=== PATIENT | male | born 1970 | race Asian ===

== ENCOUNTER 2017-12-25 14:33 | Inpatient (IN) | payer MEDICAID, OTHER, SELFPAY ==
[~2017-12-25] VITALS: Ht 177.8 cm; Wt 52.9 kg
[2017-12-25] MEDS ORDERED: VERAPAMIL 2.5 MG/ML, 2ML ONE (15:19)
[2017-12-25] MEDS ORDERED: VERAPAMIL 2.5 MG/ML, 2ML IVPush ONE (15:30)
[2017-12-25 15:38] LABS: ALANINE AMINOTRANSFERASE 147 U/L (12-78); ALBUMIN 3.3 g/dL (3.4-5.0); ANION GAP 16 mmol/L (5-15); CALCIUM 9.1 mg/dL (8.5-10.1); CHLORIDE 90 mmol/L (98-107); CREATININE 1.13 mg/dL (0.7-1.3); INTERNATIONAL NORMALIZED RATIO 1.24 (0.93-1.1); PROTHROMBIN TIME 12.8 Seconds (9.6-11.5)
[2017-12-25 15:42] LABS: ALKALINE PHOSPHATASE 245 U/L (45-117); BILIRUBIN,TOTAL 3.9 mg/dL (0.2-1.0); TOTAL PROTEIN 7.6 g/dL (6.4-8.2); TROPONIN I 0.046 ng/mL (0.000-0.045)
[2017-12-25] MEDS ORDERED: NS + 40MEQ KCL 1,000 ML IV ONE (15:55)
[2017-12-25 15:56] LABS: MICROSCOPIC INDICATED
[2017-12-25] MEDS ORDERED: POTASSIUM CHLORIDE 40 MEQ in SODIUM CHLORIDE 0.9% 500 ML IV ONE (16:00)
[2017-12-25] MEDS ORDERED: NS + 40MEQ KCL 1,000 ML IV SCH (16:00)
[2017-12-25 16:02] LABS: MEAN CORPUSCULAR HEMOGLOBIN 27.7 pg (27.5-34.5); MEAN CORPUSCULAR HGB CONC 33.7 g/dL (33.2-36.2); MEAN CORPUSCULAR VOLUME 82.2 fL (81-97); MEAN PLATELET VOLUME 12.2 fL (7.4-10.4); RED BLOOD COUNT 4.36 x10^6/uL (4.38-5.82); RED CELL DISTRIBUTION WIDTH 15.1 % (9.4-14.8)
[2017-12-25 16:03] LABS: HEMOGRAM NOTE RECHECKED
[2017-12-25 16:04] LABS: PLATELET COUNT 44 x10^3/uL (130-400)
[2017-12-25 16:05] LABS: BASOPHILS # (AUTO) 0.05 x10^3/uL (0-0.1); BASOPHILS % (AUTO) 1 % (0-1); EOSINOPHILS # (AUTO) 0.03 x10^3/uL (0-0.4); EOSINOPHILS % (AUTO) 0 % (1-7); LYMPHOCYTES # (AUTO) 3.48 x10^3/uL (1-3.4); LYMPHOCYTES % (AUTO) 31 % (22-44); MD MORPH REVIEW ONLY; MONOCYTES # (AUTO) 0.64 x10^3/uL (0.2-0.8); MONOCYTES % (AUTO) 6 % (2-9); NEUTROPHILS # (AUTO) 7.14 x10^3/uL (1.8-6.8); NEUTROPHILS % (AUTO) 63 % (42-75)
[2017-12-25 16:08] LABS: ANISOCYTOSIS 1+
[2017-12-25 16:10] LABS: <PLATELET ESTIMATE> DECREASED; LARGE PLATELETS 1+; TARGET CELLS 1+
[2017-12-25 16:10] LABS: CULTURE INDICATED? NO
[2017-12-25] MEDS ORDERED: HYDROmorphone 1 MG/ML, 1ML IV ONE (16:30)
[2017-12-25] MEDS ORDERED: POTASSIUM CHLORIDE 20 MEQ TAB.ER.PRT PO ONE (17:00)
[2017-12-25] MEDS ORDERED: POTASSIUM CHLORIDE 20 MEQ in LACTATED RINGERS 1,000 ML IV SCH (18:04)
[2017-12-25] MEDS ORDERED: LABETALOL 5MG/ML, 20ML IVPush PRN (18:30)
[2017-12-25] MEDS ORDERED: NICOTINE 14MG/24 HR PATCH.TD24 TD SCH (18:30)
[2017-12-25] MEDS ORDERED: METOPROLOL 1 MG/ML, 5ML IVPush PRN (18:30)
[2017-12-25] MEDS: METOPROLOL TARTRATE 50 MG TABLET PO SCH ×2 (18:37→21:44)
[2017-12-25 18:41] LABS: FREE T4 (FREE THYROXINE) 1.09 ng/dL (0.76-1.46); TROPONIN I 0.052 ng/mL (0.000-0.045)
[2017-12-25 18:43] VITALS: BP 133/83
[2017-12-25 18:51] LABS: HEMOGLOBIN A1C 8.7 % (4.2-6.3)
[2017-12-25] MEDS ORDERED: MAGNESIUM SULFATE PMX 4GM/100M 100 ML IV ONE (19:00)
[2017-12-25] MEDS ORDERED: LORazepam 2 MG/ML, 1ML IVPush PRN (19:30)
[2017-12-25] MEDS ORDERED: THIAMINE 100 MG, MVI ADULT 10 ML, FOLIC ACID 1 MG in D5%-0.9% NACL 1,000 ML IV SCH (20:00)
[2017-12-25 21:13] VITALS: BP 133/83
[2017-12-25 23:47] LABS: CLOSTRIDIUM DIFFICILE ANTIGEN NEGATIVE; CLOSTRIDIUM DIFFICILE TOXIN NEGATIVE (Negative)
[2017-12-26 00:36] VITALS: BP 113/75
[2017-12-26 01:10] LABS: TROPONIN I 0.034 ng/mL (0.000-0.045)
[2017-12-26 04:42] VITALS: BP 133/83
[2017-12-26 05:37] LABS: ALBUMIN 2.4 g/dL (3.4-5.0); ANION GAP 6 mmol/L (5-15); CALCIUM 7.1 mg/dL (8.5-10.1); CHLORIDE 102 mmol/L (98-107)
[2017-12-26] MEDS ORDERED: ASPI-650 PO (05:39)
[2017-12-26] MEDS ORDERED: MULT-508 PO (05:40)
[2017-12-26 05:46] LABS: MEAN CORPUSCULAR HEMOGLOBIN 28.4 pg (27.5-34.5); MEAN CORPUSCULAR HGB CONC 34.2 g/dL (33.2-36.2); MEAN CORPUSCULAR VOLUME 82.8 fL (81-97); RED BLOOD COUNT 3.48 x10^6/uL (4.38-5.82); RED CELL DISTRIBUTION WIDTH 14.2 % (9.4-14.8)
[2017-12-26 05:49] LABS: ALANINE AMINOTRANSFERASE 117 U/L (12-78); ALKALINE PHOSPHATASE 211 U/L (45-117); BILIRUBIN,TOTAL 3.1 mg/dL (0.2-1.0); CREATININE 0.73 mg/dL (0.7-1.3)
[2017-12-26 05:50] LABS: THYROID STIMULATING HORMONE 0.869 mIU/L (0.358-3.740)
[2017-12-26 06:16] LABS: BASOPHILS # (AUTO) 0.03 x10^3/uL (0-0.1); BASOPHILS % (AUTO) 0 % (0-1); EOSINOPHILS # (AUTO) 0.06 x10^3/uL (0-0.4); EOSINOPHILS % (AUTO) 1 % (1-7); LYMPHOCYTES # (AUTO) 2.83 x10^3/uL (1-3.4); LYMPHOCYTES % (AUTO) 38 % (22-44); MD SCAN; MEAN PLATELET VOLUME 10.9 fL (7.4-10.4); MONOCYTES # (AUTO) 0.44 x10^3/uL (0.2-0.8); MONOCYTES % (AUTO) 6 % (2-9); NEUTROPHILS # (AUTO) 4.04 x10^3/uL (1.8-6.8); NEUTROPHILS % (AUTO) 55 % (42-75)
[2017-12-26 06:21] LABS: PLATELET COUNT 32 x10^3/uL (130-400)
[2017-12-26 07:37] VITALS: BP 130/90
[2017-12-26] MEDS ORDERED: FOLIC ACID 5 MG/ML IM ONE (09:00)
[2017-12-26] MEDS ORDERED: LORazepam 0.5MG TABLET PO PRN (09:00)
[2017-12-26] MEDS ORDERED: LORazepam 1MG TABLET PO PRN ×4 (09:00)
[2017-12-26] MEDS ORDERED: FOLIC ACID 1 MG TABLET ONE (09:09)
[2017-12-26] MEDS: METOPROLOL TARTRATE 50 MG TABLET PO SCH (09:13)
[2017-12-26] MEDS: metFORMIN 500 MG TABLET PO SCH ×2 (09:13→16:41)
[2017-12-26] MEDS: MULTIVITAMINS/MINERALS TABLET PO SCH (09:13)
[2017-12-26] MEDS: POTASSIUM CHLORIDE 20 MEQ PACKET PO SCH ×3 (09:13→16:42)
[2017-12-26 13:08] VITALS: BP 115/74
[2017-12-26 14:37] LABS: RED BLOOD COUNT 3.8 x10^6/uL (4.38-5.82)
[2017-12-26 14:44] LABS: ABSOLUTE RETICS # 0.072 x10^6/uL (0.5-1.5); RETICULOCYTE COUNT % 1.93 % (0.5-1.5)
[2017-12-26] MEDS: LACTATED RINGERS 1,000 ML IV SCH ×2 (15:11→22:00)
[2017-12-26 18:36] VITALS: BP 134/85
[2017-12-26 21:19] LABS: OCCULT BLOOD POSITIVE (NEGATIVE)
[2017-12-26] MEDS: METOPROLOL TARTRATE 25 MG TABLET PO SCH (22:25)
[2017-12-27 03:44] VITALS: BP 150/78
[2017-12-27] MEDS: LACTATED RINGERS 1,000 ML IV SCH ×3 (05:47→21:38)
[2017-12-27 06:36] LABS: MEAN CORPUSCULAR HEMOGLOBIN 28.6 pg (27.5-34.5); MEAN CORPUSCULAR HGB CONC 34.3 g/dL (33.2-36.2); MEAN CORPUSCULAR VOLUME 83.2 fL (81-97); MEAN PLATELET VOLUME 9.6 fL (7.4-10.4); RED BLOOD COUNT 3.18 x10^6/uL (4.38-5.82); RED CELL DISTRIBUTION WIDTH 14.7 % (9.4-14.8)
[2017-12-27 06:38] LABS: PLATELET COUNT 47 x10^3/uL (130-400)
[2017-12-27 06:39] VITALS: BP 144/91
[2017-12-27 06:46] LABS: ALBUMIN 2.6 g/dL (3.4-5.0); ANION GAP 6 mmol/L (5-15); CALCIUM 7.8 mg/dL (8.5-10.1); CHLORIDE 105 mmol/L (98-107)
[2017-12-27 07:05] LABS: ALANINE AMINOTRANSFERASE 110 U/L (12-78); ALKALINE PHOSPHATASE 168 U/L (45-117); BILIRUBIN, DIRECT 1.6 mg/dL (0.1-0.2); BILIRUBIN,INDIRECT 0.9 mg/dL (0.0-2.0); BILIRUBIN,TOTAL 2.5 mg/dL (0.2-1.0); CREATININE 0.68 mg/dL (0.7-1.3); FOLATE LEVEL 15.7 ng/mL (3.1-17.5); TOTAL PROTEIN 6.1 g/dL (6.4-8.2)
[2017-12-27 07:07] LABS: BASOPHILS # (AUTO) 0.03 x10^3/uL (0-0.1); BASOPHILS % (AUTO) 0 % (0-1); EOSINOPHILS # (AUTO) 0.11 x10^3/uL (0-0.4); EOSINOPHILS % (AUTO) 2 % (1-7); LYMPHOCYTES # (AUTO) 2.97 x10^3/uL (1-3.4); LYMPHOCYTES % (AUTO) 43 % (22-44); MD SCAN; MONOCYTES # (AUTO) 0.66 x10^3/uL (0.2-0.8); MONOCYTES % (AUTO) 9 % (2-9); NEUTROPHILS # (AUTO) 3.22 x10^3/uL (1.8-6.8); NEUTROPHILS % (AUTO) 46 % (42-75)
[2017-12-27] MEDS: POTASSIUM CHLORIDE 20 MEQ PACKET PO SCH ×3 (08:53→17:41)
[2017-12-27] MEDS: MULTIVITAMINS/MINERALS TABLET PO SCH (08:53)
[2017-12-27] MEDS: METOPROLOL TARTRATE 25 MG TABLET PO SCH ×2 (08:53→21:00)
[2017-12-27] MEDS: metFORMIN 500 MG TABLET PO SCH ×2 (08:53→17:41)
[2017-12-27 10:04] LABS: OCCULT BLOOD POSITIVE (NEGATIVE)
[2017-12-27] MEDS: PANTOPRAZOLE 40 MG IV IVPush SCH ×2 (12:46→23:31)
[2017-12-27 14:37] VITALS: BP 163/86
[2017-12-27 19:17] VITALS: BP 141/88
[2017-12-27] MEDS ORDERED: NICOTINE 21 MG/24 HR PATCH.TD24 ONE (20:39)
[2017-12-27] MEDS: NICOTINE 21 MG/24 HR PATCH.TD24 TD SCH (21:00)
[2017-12-27] MEDS ORDERED: METOPROLOL 1 MG/ML, 5ML IVPush PRN (21:00)
[2017-12-28 00:30] VITALS: BP 136/80
[2017-12-28] MEDS: LACTATED RINGERS 1,000 ML IV SCH (05:22)
[2017-12-28 05:48] LABS: ALBUMIN 2.6 g/dL (3.4-5.0); ANION GAP 6 mmol/L (5-15); CALCIUM 9.3 mg/dL (8.5-10.1); CHLORIDE 104 mmol/L (98-107); MEAN CORPUSCULAR HEMOGLOBIN 27.6 pg (27.5-34.5); MEAN CORPUSCULAR HGB CONC 32.8 g/dL (33.2-36.2); MEAN CORPUSCULAR VOLUME 84.1 fL (81-97); RED BLOOD COUNT 3.19 x10^6/uL (4.38-5.82); RED CELL DISTRIBUTION WIDTH 14.3 % (9.4-14.8)
[2017-12-28 05:52] LABS: ALANINE AMINOTRANSFERASE 106 U/L (12-78); ALKALINE PHOSPHATASE 207 U/L (45-117); BILIRUBIN,TOTAL 1.8 mg/dL (0.2-1.0); CREATININE 0.77 mg/dL (0.7-1.3); TOTAL PROTEIN 6.4 g/dL (6.4-8.2)
[2017-12-28 06:10] LABS: BASOPHILS # (AUTO) 0.04 x10^3/uL (0-0.1); BASOPHILS % (AUTO) 1 % (0-1); EOSINOPHILS # (AUTO) 0.14 x10^3/uL (0-0.4); EOSINOPHILS % (AUTO) 2 % (1-7); LYMPHOCYTES # (AUTO) 2.83 x10^3/uL (1-3.4); LYMPHOCYTES % (AUTO) 40 % (22-44); MD SCAN; MEAN PLATELET VOLUME 9.6 fL (7.4-10.4); MONOCYTES # (AUTO) 0.68 x10^3/uL (0.2-0.8); MONOCYTES % (AUTO) 10 % (2-9); NEUTROPHILS # (AUTO) 3.48 x10^3/uL (1.8-6.8); NEUTROPHILS % (AUTO) 49 % (42-75)
[2017-12-28 06:11] LABS: PLATELET COUNT 51 x10^3/uL (130-400)
[2017-12-28 06:38] VITALS: BP 170/87
[2017-12-28] MEDS ORDERED: REGADENOSON 0.4 MG/5 ML SYRINGE ONE (07:53)
[2017-12-28] MEDS: METOPROLOL TARTRATE 25 MG TABLET PO SCH ×2 (08:14→20:35)
[2017-12-28] MEDS: metFORMIN 500 MG TABLET PO SCH ×2 (08:14→17:10)
[2017-12-28] MEDS: POTASSIUM CHLORIDE 20 MEQ PACKET PO SCH ×3 (08:14→17:10)
[2017-12-28] MEDS: MULTIVITAMINS/MINERALS TABLET PO SCH (08:14)
[2017-12-28] MEDS: PANTOPRAZOLE 40 MG IV IVPush SCH ×2 (11:46→20:35)
[2017-12-28 12:15] VITALS: BP 161/85
[2017-12-28 20:00] VITALS: BP 157/86
[2017-12-28] MEDS: NICOTINE 21 MG/24 HR PATCH.TD24 TD SCH (20:37)
[2017-12-29 02:00] VITALS: BP 166/92
[2017-12-29 05:35] LABS: ALBUMIN 2.8 g/dL (3.4-5.0); ANION GAP 7 mmol/L (5-15); CHLORIDE 100 mmol/L (98-107)
[2017-12-29 05:39] LABS: MEAN CORPUSCULAR HEMOGLOBIN 28.6 pg (27.5-34.5); MEAN CORPUSCULAR HGB CONC 33.6 g/dL (33.2-36.2); MEAN CORPUSCULAR VOLUME 85.2 fL (81-97); RED BLOOD COUNT 3.42 x10^6/uL (4.38-5.82); RED CELL DISTRIBUTION WIDTH 14.1 % (9.4-14.8)
[2017-12-29 05:41] LABS: ALANINE AMINOTRANSFERASE 90 U/L (12-78); ALKALINE PHOSPHATASE 205 U/L (45-117); BILIRUBIN,TOTAL 1.4 mg/dL (0.2-1.0); CREATININE 0.86 mg/dL (0.7-1.3); TOTAL PROTEIN 6.8 g/dL (6.4-8.2)
[2017-12-29 06:12] LABS: MD YES
[2017-12-29 06:14] LABS: ANISOCYTOSIS 1+; BAND#(MANUAL) 0.21 x10^3/uL; BANDS%(MANUAL) 3 % (0-7); EOS#(MANUAL) 0.07 x10^3/uL (0.0-0.4); EOS% (MANUAL) 1 % (1-7); LYMPHS% (MANUAL) 60 % (22-44); MONOS#(MANUAL) 0.35 x10^3/uL (0.3-2.7); MONOS% (MANUAL) 5 % (2-9); NRBC % (MANUAL) 1 % (0-1); SEG#(MANUAL) 2.17 x10^3/uL (1.8-6.8); SEGS% (MANUAL) 31 % (42-75)
[2017-12-29 06:15] LABS: <PLATELET ESTIMATE> DECREASED; POLYCHROMASIA 1+; TARGET CELLS 1+
[2017-12-29 06:16] LABS: MEAN PLATELET VOLUME 9.6 fL (7.4-10.4); PLATELET COUNT 93 x10^3/uL (130-400)
[2017-12-29 06:19] LABS: LARGE PLATELETS 1+
[2017-12-29 06:26] LABS: ABSOLUTE RETICS # 0.178 x10^6/uL (0.5-1.5); RED BLOOD COUNT 3.44 x10^6/uL (4.38-5.82); RETICULOCYTE COUNT % 5.19 % (0.5-1.5)
[2017-12-29 07:45] VITALS: BP 164/110
[2017-12-29] MEDS: POTASSIUM CHLORIDE 20 MEQ PACKET PO SCH ×2 (08:10→12:30)
[2017-12-29] MEDS: metFORMIN 500 MG TABLET PO SCH (08:11)
[2017-12-29] MEDS: MULTIVITAMINS/MINERALS TABLET PO SCH (08:11)
[2017-12-29] MEDS: METOPROLOL TARTRATE 25 MG TABLET PO SCH (08:11)
[2017-12-29] MEDS: PANTOPRAZOLE 40 MG IV IVPush SCH (08:11)
[2017-12-29] MEDS ORDERED: MAGNESIUM SULFATE PMX 4GM/100M 100 ML IV ONE (08:30)
[2017-12-29 13:12] VITALS: BP 147/88
[2017-12-29] MEDS ORDERED: METO25TA35 PO (14:20)
[2017-12-29] MEDS ORDERED: METF500T PO (14:20)
[2017-12-29] MEDS ORDERED: NICO-487 TD (14:45)
== END 2017-12-29 15:37 | disposition home or self-care (01) | DRG 309 ==
LOC: ED 16:26 → EDIP 16:27 → ED 17:03 → 4WST 18:31
PROVIDERS: ADMIT Internal Medicine; ATTEND Internal Medicine
DX: I48.91 Unspecified atrial fibrillation (principal); D68.69 Other thrombophilia; D69.6 Thrombocytopenia, unspecified; E44.0 Moderate protein-calorie malnutrition; E11.65 Type 2 diabetes mellitus with hyperglycemia; E83.51 Hypocalcemia; E87.1 Hypo-osmolality and hyponatremia; Z68.1 Body mass index [BMI] 19.9 or less, adult; D63.8 Anemia in other chronic diseases classified elsewhere; D72.829 Elevated white blood cell count, unspecified; E87.6 Hypokalemia; F10.10 Alcohol abuse, uncomplicated; I10 Essential (primary) hypertension; I16.0 Hypertensive urgency; K29.20 Alcoholic gastritis without bleeding; K70.10 Alcoholic hepatitis without ascites; R55 Syncope and collapse; Z91.030 Bee allergy status; Z91.041 Radiographic dye allergy status; Z82.49 Family history of ischemic heart disease and other diseases of the circulatory system
CPT/HCPCS: 36415; 71045; 76700; 78452; 80048; 80053; 80074; 80076; 81001; 82140; 82272; 82607; 82728; 82746; 82962; 83036; 83540; 83550; 83690; 83735; 84100; 84439; 84443; 84466; 84484; 85025; 85045; 85610; 85730; 87324; 87806; 93005; 93017; 93306; 99285; J2785; J3411; J7042; A9502; C9113; C9898; G0475; J3475; J3480; J7120

== ENCOUNTER 2018-04-21 08:51 | Emergency (ER) | payer MEDICAID ==
[~2018-04-21] VITALS: Ht 172.7 cm; Wt 55.1 kg
[~2018-04-21 08:51] MED LIST: ASPI-650 PO; METF500T PO; METO25TA35 PO; MULT-508 PO; NICO-487 TD
[2018-04-21 10:17] LABS: BASOPHILS # (AUTO) 0.01 x10^3/uL (0-0.1); BASOPHILS % (AUTO) 0 % (0-1); EOSINOPHILS # (AUTO) 0.07 x10^3/uL (0-0.4); EOSINOPHILS % (AUTO) 1 % (1-7); LYMPHOCYTES # (AUTO) 2.83 x10^3/uL (1-3.4); LYMPHOCYTES % (AUTO) 43 % (22-44); MD NO; MEAN CORPUSCULAR HEMOGLOBIN 26.9 pg (27.5-34.5); MEAN CORPUSCULAR HGB CONC 33.3 g/dL (33.2-36.2); MEAN CORPUSCULAR VOLUME 80.7 fL (81-97); MEAN PLATELET VOLUME 8.3 fL (7.4-10.4); MONOCYTES # (AUTO) 0.53 x10^3/uL (0.2-0.8); MONOCYTES % (AUTO) 8 % (2-9); NEUTROPHILS % (AUTO) 48 % (42-75); PLATELET COUNT 122 x10^3/uL (130-400); RED BLOOD COUNT 4.63 x10^6/uL (4.38-5.82)
[2018-04-21 10:28] LABS: ALANINE AMINOTRANSFERASE 71 U/L (12-78); ALBUMIN 4.3 g/dL (3.4-5.0); ANION GAP 8 mmol/L (5-15); CALCIUM 8.3 mg/dL (8.5-10.1); CHLORIDE 109 mmol/L (98-107); CREATININE 0.76 mg/dL (0.7-1.3)
[2018-04-21 10:33] LABS: ALKALINE PHOSPHATASE 142 U/L (45-117); BILIRUBIN,TOTAL 0.4 mg/dL (0.2-1.0); TROPONIN I < 0.015 ng/mL (0.000-0.045)
[2018-04-21] MEDS ORDERED: LORazepam 1MG TABLET ONE (10:53)
[2018-04-21] MEDS ORDERED: LORazepam 1MG TABLET PO ONE (11:00)
[2018-04-21] MEDS ORDERED: OXYcodone/APAP 5/325MG TABLET PO ONE (12:30)
[2018-04-21] MEDS ORDERED: OXYcodone/APAP 5/325MG TABLET ONE (12:47)
[2018-04-21 12:54] VITALS: BP 138/99
[2018-04-21 12:58] LABS: TROPONIN I < 0.015 ng/mL (0.000-0.045)
== END 2018-04-21 14:27 | disposition home or self-care (01) ==
LOC: ED 11:50
DX: R07.89 Other chest pain (principal); R45.4 Irritability and anger; F10.239 Alcohol dependence with withdrawal, unspecified; I10 Essential (primary) hypertension; F17.200 Nicotine dependence, unspecified, uncomplicated
CPT/HCPCS: 36415; 71045; 80053; 83690; 83880; 84484; 85025; 93005; 99285

== ENCOUNTER 2018-05-13 13:19 | Observation (INO) | payer MEDICAID ==
[~2018-05-13] VITALS: Ht 172.7 cm; Wt 97.5 kg
[2018-05-13 14:02] LABS: MEAN CORPUSCULAR HGB CONC 33.2 g/dL (33.2-36.2); MEAN CORPUSCULAR VOLUME 81.3 fL (81-97); MEAN PLATELET VOLUME 9.2 fL (7.4-10.4); PLATELET COUNT 120 x10^3/uL (130-400); RED BLOOD COUNT 4.55 x10^6/uL (4.38-5.82); RED CELL DISTRIBUTION WIDTH 14.8 % (9.4-14.8)
[2018-05-13 14:15] LABS: ALANINE AMINOTRANSFERASE 59 U/L (12-78); ALBUMIN 4.3 g/dL (3.4-5.0); ANION GAP 10 mmol/L (5-15); CALCIUM 8.2 mg/dL (8.5-10.1); CHLORIDE 108 mmol/L (98-107); CREATININE 0.94 mg/dL (0.7-1.3); SALICYLATE LEVEL 4.4 mg/dL (2.8-20.0)
[2018-05-13 14:20] LABS: ALKALINE PHOSPHATASE 122 U/L (45-117); BILIRUBIN,TOTAL 0.4 mg/dL (0.2-1.0); TOTAL PROTEIN 7.6 g/dL (6.4-8.2)
[2018-05-13 14:22] LABS: ACETAMINOPHEN < 2 mcg/mL (10-30)
[2018-05-13 15:01] LABS: CULTURE INDICATED? NO; MICROSCOPIC NOT IND
[2018-05-13 15:07] LABS: AMPHETAMINE SCREEN, URINE Negative (Negative); BARBITURATE SCREEN, URINE Negative (Negative); BENZODIAZEPINE SCREEN, URINE Negative (Negative); CANNABINOID SCREEN, URINE Negative (Negative); COCAINE SCREEN, URINE Negative (Negative); METHADONE SCREEN, URINE Negative (Negative); OPIATE SCREEN, URINE Negative (Negative)
[2018-05-13 15:41] LABS: MD YES
[2018-05-13 16:31] LABS: EOS#(MANUAL) 0.14 x10^3/uL (0.0-0.4); EOS% (MANUAL) 2 % (1-7); LYMPH#(MANUAL) 3.74 x10^3/uL (1-3.4); LYMPHS% (MANUAL) 52 % (22-44); MONOS#(MANUAL) 0.72 x10^3/uL (0.3-2.7); MONOS% (MANUAL) 10 % (2-9); REACTIVE LYMPHS # (MANUAL) 0.29 x10^3/uL (0-0); REACTIVE LYMPHS % (MANUAL) 4 % (0-0); SEGS% (MANUAL) 32 % (42-75)
[2018-05-13 16:32] LABS: <PLT MORPHOLOGY> NORMAL PLT MORPH; <RBC MORPHOLOGY> NORMAL
[2018-05-13 16:33] LABS: <PLATELET ESTIMATE> ADEQUATE
[2018-05-14] MEDS ORDERED: MAALOX/HYOSCYAMINE/LIDOCAINE 45 ML BTL PO ONE (04:30)
[2018-05-14] MEDS ORDERED: MAALOX/HYOSCYAMINE/LIDOCAINE 45 ML BTL ONE (04:32)
[2018-05-14 06:21] LABS: TROPONIN I < 0.015 ng/mL (0.000-0.045)
[2018-05-14] MEDS ORDERED: ONDANSETRON ODT 4 MG PO PRN (08:30)
[2018-05-14] MEDS ORDERED: ONDANSETRON ODT 4 MG ONE (08:33)
[2018-05-14] MEDS ORDERED: ONDANSETRON ODT 4 MG PO ONE (09:00)
[2018-05-14 09:02] VITALS: BP 148/99
[2018-05-14] MEDS: FAMOTIDINE 20 MG TABLET PO SCH ×2 (10:03→19:53)
[2018-05-14] MEDS: LORazepam 0.5MG TABLET PO PRN ×3 (10:04→20:00)
[2018-05-14] MEDS: METOPROLOL TARTRATE 25 MG TABLET PO SCH ×2 (10:04→19:53)
[2018-05-14] MEDS: THIAMINE 100MG TABLET PO SCH (10:04)
[2018-05-14] MEDS: ACETAMINOPHEN 325 MG TABLET PO PRN ×2 (10:05→15:59)
[2018-05-14] MEDS: NICOTINE 21 MG/24 HR PATCH.TD24 TD SCH (10:05)
[2018-05-14] MEDS: MULTIVITAMINS/MINERALS TABLET PO SCH (11:37)
[2018-05-14 11:41] VITALS: BP 148/99
[2018-05-14 13:46] VITALS: BP 156/94
[2018-05-14] MEDS: metFORMIN 500 MG TABLET PO SCH (17:32)
[2018-05-14 18:50] VITALS: BP 155/86
[2018-05-15 00:44] VITALS: BP 164/99
[2018-05-15] MEDS: NICOTINE 21 MG/24 HR PATCH.TD24 TD SCH (06:13)
[2018-05-15 06:44] VITALS: BP 157/96
[2018-05-15] MEDS: metFORMIN 500 MG TABLET PO SCH ×2 (07:36→17:06)
[2018-05-15] MEDS: THIAMINE 100MG TABLET PO SCH (08:38)
[2018-05-15] MEDS: FAMOTIDINE 20 MG TABLET PO SCH (08:38)
[2018-05-15] MEDS: METOPROLOL TARTRATE 25 MG TABLET PO SCH ×2 (08:38→19:26)
[2018-05-15] MEDS: MULTIVITAMINS/MINERALS TABLET PO SCH (08:38)
[2018-05-15] MEDS: LORazepam 0.5MG TABLET PO PRN ×3 (08:38→19:26)
[2018-05-15] MEDS: ACETAMINOPHEN 325 MG TABLET PO PRN (09:24)
[2018-05-15] MEDS: PANTOPROZOLE 40MG TABLET PO SCH (11:36)
[2018-05-15 12:11] VITALS: BP 139/88
[2018-05-15] MEDS ORDERED: PANT40TA5 PO (17:10)
[2018-05-15 19:12] VITALS: BP 142/90
[2018-05-16 01:56] VITALS: BP 140/71
[2018-05-16] MEDS: NICOTINE 21 MG/24 HR PATCH.TD24 TD SCH (05:57)
[2018-05-16 06:41] VITALS: BP 162/98
[2018-05-16] MEDS: PANTOPROZOLE 40MG TABLET PO SCH (08:46)
[2018-05-16] MEDS: METOPROLOL TARTRATE 25 MG TABLET PO SCH (08:46)
[2018-05-16] MEDS: metFORMIN 500 MG TABLET PO SCH (08:46)
[2018-05-16] MEDS: THIAMINE 100MG TABLET PO SCH (08:46)
[2018-05-16] MEDS: MULTIVITAMINS/MINERALS TABLET PO SCH (08:47)
[2018-05-16] MEDS: LORazepam 0.5MG TABLET PO PRN (08:51)
[2018-05-16 12:12] VITALS: BP 157/97
[2018-05-16] MEDS ORDERED: CITALOPRAM 20 MG TABLET PO SCH (13:30)
[2018-05-16] MEDS ORDERED: ATOR20TA9 PO (17:23)
[2018-05-16] MEDS ORDERED: GLIP5TAB10 PO (17:23)
[2018-05-16] MEDS ORDERED: METF-688 PO (17:23)
[2018-05-16] MEDS ORDERED: RANI150C PO (17:23)
== END 2018-05-16 16:12 ==
LOC: ED 14:36 → EDIP 05-14 07:19 → 3NW 05-14 09:00
PROVIDERS: ADMIT Hospitalist; ATTEND Internal Medicine
DX: R45.851 Suicidal ideations (principal); F10.220 Alcohol dependence with intoxication, uncomplicated; F10.239 Alcohol dependence with withdrawal, unspecified; F32.9 Major depressive disorder, single episode, unspecified; E11.9 Type 2 diabetes mellitus without complications; I10 Essential (primary) hypertension; K21.9 Gastro-esophageal reflux disease without esophagitis; K27.9 Peptic ulcer, site unspecified, unspecified as acute or chronic, without hemorrhage or perforation; Z81.8 Family history of other mental and behavioral disorders; Z72.0 Tobacco use; K29.20 Alcoholic gastritis without bleeding
CPT/HCPCS: 36415; 71045; 76700; 80053; 80307; 80329; 81003; 82962; 83690; 84484; 85025; 93005; 99285; G0378; Q0162; G0480

== ENCOUNTER 2018-05-16 15:58 | Inpatient (IN) | payer MEDICAID ==
[~2018-05-16] VITALS: Ht 172.7 cm; Wt 56.6 kg
[~2018-05-16 15:58] MED LIST changes: +PANT40TA5 PO
[2018-05-16] MEDS ORDERED: POLYETHYLENE GLYCOL 17 GM PACKET PO PRN (17:00)
[2018-05-16] MEDS ORDERED: DOCUSATE 100 MG CAPSULE PO PRN (17:00)
[2018-05-16] MEDS ORDERED: ONDANSETRON ODT 4 MG PO PRN (17:00)
[2018-05-16] MEDS ORDERED: PLEASE ENTER HEIGHT AND WEIGHT MC SCH (17:00)
[2018-05-16] MEDS ORDERED: BISACODYL 10 MG SUPP PR PRN (17:00)
[2018-05-16] MEDS ORDERED: ATOR20TA9 PO (17:23)
[2018-05-16] MEDS ORDERED: GLIP5TAB10 PO (17:23)
[2018-05-16] MEDS ORDERED: METF-688 PO (17:23)
[2018-05-16] MEDS ORDERED: RANI150C PO (17:23)
[2018-05-16 17:30] VITALS: BP 158/90
[2018-05-16 17:39] LABS: ALANINE AMINOTRANSFERASE 56 U/L (12-78); ALBUMIN 3.7 g/dL (3.4-5.0); ANION GAP 7 mmol/L (5-15); CALCIUM 8.5 mg/dL (8.5-10.1); CHLORIDE 106 mmol/L (98-107); CREATININE 0.71 mg/dL (0.7-1.3)
[2018-05-16 17:43] LABS: HCT (SEDRATE) 36.7 % (39.2-51.8)
[2018-05-16 18:01] LABS: BASOPHILS # (AUTO) 0.03 x10^3/uL (0-0.1); BASOPHILS % (AUTO) 0 % (0-1); EOSINOPHILS # (AUTO) 0.34 x10^3/uL (0-0.4); EOSINOPHILS % (AUTO) 4 % (1-7); LYMPHOCYTES # (AUTO) 4.03 x10^3/uL (1-3.4); LYMPHOCYTES % (AUTO) 45 % (22-44); MD SCAN; MEAN CORPUSCULAR HEMOGLOBIN 27.8 pg (27.5-34.5); MEAN CORPUSCULAR HGB CONC 33.1 g/dL (33.2-36.2); MEAN CORPUSCULAR VOLUME 83.9 fL (81-97); MEAN PLATELET VOLUME 9.9 fL (7.4-10.4); MONOCYTES % (AUTO) 4 % (2-9); NEUTROPHILS # (AUTO) 4.26 x10^3/uL (1.8-6.8); NEUTROPHILS % (AUTO) 47 % (42-75); PLATELET COUNT 86 x10^3/uL (130-400); RED BLOOD COUNT 4.37 x10^6/uL (4.38-5.82); RED CELL DISTRIBUTION WIDTH 14.7 % (9.4-14.8)
[2018-05-16 18:06] LABS: ALKALINE PHOSPHATASE 161 U/L (45-117); BILIRUBIN,TOTAL 0.3 mg/dL (0.2-1.0); CHOL/HDL RATIO 2.8; CHOLESTEROL, TOTAL 120 mg/dL (140-239); HDL CHOL % 36 % (26-37); HDL CHOLESTEROL (DIRECT) 43 mg/dL (40-60); LDL CHOLESTEROL,CALCULATED 40 mg/dL (54-169); LDL/HDL RATIO 0.9 (0.5-3.0); T4 (THYROXINE) 7.2 mcg/dL (4.5-12.1); TOTAL PROTEIN 7.4 g/dL (6.4-8.2); TRIGLYCERIDES 187 mg/dL (50-200); VLDL CHOLESTEROL 37 mg/dL (0-25)
[2018-05-16 19:41] VITALS: BP 154/92
[2018-05-16] MEDS: ACAMPROSATE 333 MG TABLET.DR PO SCH (20:28)
[2018-05-16] MEDS: ACETAMINOPHEN 325 MG TABLET PO PRN (20:28)
[2018-05-16] MEDS ORDERED: TRAZODONE 50MG TABLET PO PRN (21:00)
[2018-05-17 07:59] VITALS: BP 153/98
[2018-05-17] MEDS: ACAMPROSATE 333 MG TABLET.DR PO SCH ×3 (09:01→20:57)
[2018-05-17] MEDS: NICOTINE 21 MG/24 HR PATCH.TD24 TD SCH (09:01)
[2018-05-17] MEDS: THIAMINE 100MG TABLET PO SCH (09:01)
[2018-05-17] MEDS: ACETAMINOPHEN 325 MG TABLET PO PRN ×3 (09:09→19:56)
[2018-05-17] MEDS: metFORMIN 500 MG TABLET PO SCH (16:16)
[2018-05-17 19:55] VITALS: BP 164/100
[2018-05-17] MEDS: ATORVASTATIN 20 MG TABLET PO SCH (20:57)
[2018-05-17] MEDS: METOPROLOL TARTRATE 25 MG TABLET PO SCH (20:58)
[2018-05-18 06:05] LABS: CHLORIDE 105 mmol/L (98-107)
[2018-05-18 06:10] LABS: ALBUMIN 3.6 g/dL (3.4-5.0); ANION GAP 7 mmol/L (5-15); CALCIUM 9.2 mg/dL (8.5-10.1)
[2018-05-18] MEDS: ACETAMINOPHEN 325 MG TABLET PO PRN ×3 (06:10→20:11)
[2018-05-18] MEDS: PANTOPROZOLE 40MG TABLET PO SCH (07:42)
[2018-05-18] MEDS: metFORMIN 500 MG TABLET PO SCH ×2 (07:42→16:17)
[2018-05-18 07:59] VITALS: BP 155/99
[2018-05-18] MEDS: CITALOPRAM 20 MG TABLET PO SCH (08:32)
[2018-05-18] MEDS: METOPROLOL TARTRATE 25 MG TABLET PO SCH ×2 (08:32→20:07)
[2018-05-18] MEDS: ACAMPROSATE 333 MG TABLET.DR PO SCH ×3 (08:32→20:07)
[2018-05-18] MEDS: THIAMINE 100MG TABLET PO SCH (08:32)
[2018-05-18] MEDS: NICOTINE 21 MG/24 HR PATCH.TD24 TD SCH (08:32)
[2018-05-18] MEDS: INSULIN LISPRO 100 UNITS/ML, PEN SQ-INSULIN SCH ×2 (19:15→21:00)
[2018-05-18 19:59] VITALS: BP 164/103
[2018-05-18] MEDS: ATORVASTATIN 20 MG TABLET PO SCH (20:07)
[2018-05-19] MEDS: INSULIN LISPRO 100 UNITS/ML, PEN SQ-INSULIN SCH ×4 (07:00→20:05)
[2018-05-19] MEDS: PANTOPROZOLE 40MG TABLET PO SCH (07:37)
[2018-05-19] MEDS: metFORMIN 500 MG TABLET PO SCH ×2 (07:37→16:29)
[2018-05-19 08:00] VITALS: BP 149/89
[2018-05-19] MEDS: METOPROLOL TARTRATE 25 MG TABLET PO SCH ×2 (08:45→20:00)
[2018-05-19] MEDS: CITALOPRAM 20 MG TABLET PO SCH (08:45)
[2018-05-19] MEDS: ACAMPROSATE 333 MG TABLET.DR PO SCH ×3 (08:45→20:00)
[2018-05-19] MEDS: NICOTINE 21 MG/24 HR PATCH.TD24 TD SCH (08:46)
[2018-05-19] MEDS: THIAMINE 100MG TABLET PO SCH (08:46)
[2018-05-19] MEDS: ACETAMINOPHEN 325 MG TABLET PO PRN ×2 (11:41→19:44)
[2018-05-19 19:50] VITALS: BP 148/89
[2018-05-19] MEDS: ATORVASTATIN 20 MG TABLET PO SCH (19:59)
[2018-05-20 07:45] VITALS: BP 115/79
[2018-05-20] MEDS: INSULIN LISPRO 100 UNITS/ML, PEN SQ-INSULIN SCH ×4 (07:58→20:00)
[2018-05-20] MEDS: PANTOPROZOLE 40MG TABLET PO SCH (07:59)
[2018-05-20] MEDS: ACAMPROSATE 333 MG TABLET.DR PO SCH ×3 (08:19→20:25)
[2018-05-20] MEDS: THIAMINE 100MG TABLET PO SCH (08:19)
[2018-05-20] MEDS: CITALOPRAM 20 MG TABLET PO SCH (08:19)
[2018-05-20] MEDS: metFORMIN 500 MG TABLET PO SCH ×2 (08:19→16:43)
[2018-05-20] MEDS: METOPROLOL TARTRATE 25 MG TABLET PO SCH ×2 (08:20→20:26)
[2018-05-20] MEDS: NICOTINE 21 MG/24 HR PATCH.TD24 TD SCH (08:20)
[2018-05-20] MEDS: ACETAMINOPHEN 325 MG TABLET PO PRN ×2 (13:35→19:38)
[2018-05-20 19:47] VITALS: BP 120/78
[2018-05-20] MEDS: ATORVASTATIN 20 MG TABLET PO SCH (20:25)
[2018-05-21] MEDS: ACETAMINOPHEN 325 MG TABLET PO PRN ×3 (01:33→19:20)
[2018-05-21 07:30] VITALS: BP 136/86
[2018-05-21] MEDS: INSULIN LISPRO 100 UNITS/ML, PEN SQ-INSULIN SCH ×4 (07:54→20:16)
[2018-05-21] MEDS: ACAMPROSATE 333 MG TABLET.DR PO SCH ×3 (08:21→20:19)
[2018-05-21] MEDS: CITALOPRAM 20 MG TABLET PO SCH (08:22)
[2018-05-21] MEDS: METOPROLOL TARTRATE 25 MG TABLET PO SCH ×2 (08:22→20:19)
[2018-05-21] MEDS: PANTOPROZOLE 40MG TABLET PO SCH (08:22)
[2018-05-21] MEDS: metFORMIN 500 MG TABLET PO SCH ×2 (08:22→16:30)
[2018-05-21] MEDS: NICOTINE 21 MG/24 HR PATCH.TD24 TD SCH (08:38)
[2018-05-21] MEDS: THIAMINE 100MG TABLET PO SCH (08:49)
[2018-05-21 19:25] VITALS: BP 131/87
[2018-05-21] MEDS: ATORVASTATIN 20 MG TABLET PO SCH (20:19)
[2018-05-22] MEDS: ACETAMINOPHEN 325 MG TABLET PO PRN ×3 (02:52→20:16)
[2018-05-22] MEDS: INSULIN LISPRO 100 UNITS/ML, PEN SQ-INSULIN SCH ×4 (07:56→21:00)
[2018-05-22 08:05] VITALS: BP 135/87
[2018-05-22] MEDS: PANTOPROZOLE 40MG TABLET PO SCH (08:25)
[2018-05-22] MEDS: THIAMINE 100MG TABLET PO SCH (08:25)
[2018-05-22] MEDS: metFORMIN 500 MG TABLET PO SCH ×2 (08:25→16:36)
[2018-05-22] MEDS: ACAMPROSATE 333 MG TABLET.DR PO SCH ×3 (08:25→20:15)
[2018-05-22] MEDS: METOPROLOL TARTRATE 25 MG TABLET PO SCH ×2 (08:25→20:16)
[2018-05-22] MEDS: CITALOPRAM 20 MG TABLET PO SCH (08:25)
[2018-05-22] MEDS: NICOTINE 21 MG/24 HR PATCH.TD24 TD SCH (08:26)
[2018-05-22 19:44] VITALS: BP 132/83
[2018-05-22] MEDS: ATORVASTATIN 20 MG TABLET PO SCH (20:15)
[2018-05-22] MEDS: TRAZODONE 100MG TABLET PO PRN (20:19)
[2018-05-22] MEDS ORDERED: TRAZODONE 50MG TABLET PO PRN (21:00)
[2018-05-23] MEDS: ACETAMINOPHEN 325 MG TABLET PO PRN ×3 (02:22→16:54)
[2018-05-23 07:58] VITALS: BP 126/85
[2018-05-23] MEDS: INSULIN LISPRO 100 UNITS/ML, PEN SQ-INSULIN SCH ×4 (08:11→20:27)
[2018-05-23] MEDS: ACAMPROSATE 333 MG TABLET.DR PO SCH ×3 (08:18→20:57)
[2018-05-23] MEDS: metFORMIN 500 MG TABLET PO SCH ×2 (08:19→16:39)
[2018-05-23] MEDS: CITALOPRAM 20 MG TABLET PO SCH (08:19)
[2018-05-23] MEDS: THIAMINE 100MG TABLET PO SCH (08:19)
[2018-05-23] MEDS: PANTOPROZOLE 40MG TABLET PO SCH (08:19)
[2018-05-23] MEDS: METOPROLOL TARTRATE 25 MG TABLET PO SCH ×2 (08:19→20:20)
[2018-05-23] MEDS: NICOTINE 21 MG/24 HR PATCH.TD24 TD SCH (09:41)
[2018-05-23 20:00] VITALS: BP 138/88
[2018-05-23] MEDS: ATORVASTATIN 20 MG TABLET PO SCH (20:20)
[2018-05-23] MEDS: TRAZODONE 100MG TABLET PO PRN (20:25)
[2018-05-24 07:16] VITALS: BP 132/85
[2018-05-24] MEDS: PANTOPROZOLE 40MG TABLET PO SCH (07:38)
[2018-05-24] MEDS: metFORMIN 500 MG TABLET PO SCH ×2 (07:38→16:56)
[2018-05-24] MEDS: INSULIN LISPRO 100 UNITS/ML, PEN SQ-INSULIN SCH ×4 (07:53→20:24)
[2018-05-24] MEDS: ACAMPROSATE 333 MG TABLET.DR PO SCH ×3 (09:12→19:56)
[2018-05-24] MEDS: THIAMINE 100MG TABLET PO SCH (09:12)
[2018-05-24] MEDS: METOPROLOL TARTRATE 25 MG TABLET PO SCH ×2 (09:12→19:56)
[2018-05-24] MEDS: CITALOPRAM 20 MG TABLET PO SCH (09:12)
[2018-05-24] MEDS: NICOTINE 21 MG/24 HR PATCH.TD24 TD SCH (09:13)
[2018-05-24] MEDS: ACETAMINOPHEN 325 MG TABLET PO PRN (16:56)
[2018-05-24 19:44] VITALS: BP 125/72
[2018-05-24] MEDS: ATORVASTATIN 20 MG TABLET PO SCH (19:56)
[2018-05-24] MEDS: TRAZODONE 100MG TABLET PO PRN (19:56)
[2018-05-25] MEDS: PANTOPROZOLE 40MG TABLET PO SCH (07:37)
[2018-05-25] MEDS: metFORMIN 500 MG TABLET PO SCH ×2 (07:37→16:25)
[2018-05-25] MEDS: INSULIN LISPRO 100 UNITS/ML, PEN SQ-INSULIN SCH ×4 (07:44→20:21)
[2018-05-25 07:58] VITALS: BP 128/79
[2018-05-25] MEDS: CITALOPRAM 20 MG TABLET PO SCH (08:37)
[2018-05-25] MEDS: METOPROLOL TARTRATE 25 MG TABLET PO SCH ×2 (08:37→20:20)
[2018-05-25] MEDS: ACAMPROSATE 333 MG TABLET.DR PO SCH ×3 (08:37→20:20)
[2018-05-25] MEDS: THIAMINE 100MG TABLET PO SCH (08:37)
[2018-05-25] MEDS: NICOTINE 21 MG/24 HR PATCH.TD24 TD SCH (08:38)
[2018-05-25] MEDS: ACETAMINOPHEN 325 MG TABLET PO PRN ×2 (09:54→20:20)
[2018-05-25] MEDS: HYDROXYZINE PAMOATE 25MG CAP PO PRN (18:21)
[2018-05-25 19:57] VITALS: BP 119/75
[2018-05-25] MEDS: ATORVASTATIN 20 MG TABLET PO SCH (20:20)
[2018-05-25] MEDS: TRAZODONE 100MG TABLET PO PRN (20:31)
[2018-05-25] MEDS ORDERED: INSULIN GLARGINE 100 UNITS/ML, PEN SQ-INSULIN SCH (21:00)
[2018-05-26] MEDS ORDERED: INSULIN GLARGINE 100 UNITS/ML, PEN SQ-INSULIN SCH ×2 (07:30→21:00)
[2018-05-26] MEDS: metFORMIN 500 MG TABLET PO SCH ×2 (07:45→16:27)
[2018-05-26] MEDS: PANTOPROZOLE 40MG TABLET PO SCH (07:45)
[2018-05-26] MEDS: INSULIN LISPRO 100 UNITS/ML, PEN SQ-INSULIN SCH ×4 (07:46→20:26)
[2018-05-26 08:06] VITALS: BP 138/91
[2018-05-26] MEDS: ACAMPROSATE 333 MG TABLET.DR PO SCH ×3 (08:38→20:27)
[2018-05-26] MEDS: CITALOPRAM 20 MG TABLET PO SCH (08:38)
[2018-05-26] MEDS: THIAMINE 100MG TABLET PO SCH (08:38)
[2018-05-26] MEDS: METOPROLOL TARTRATE 25 MG TABLET PO SCH ×2 (08:38→20:28)
[2018-05-26] MEDS: ACETAMINOPHEN 325 MG TABLET PO PRN ×2 (08:39→20:28)
[2018-05-26] MEDS: HYDROXYZINE PAMOATE 25MG CAP PO PRN ×2 (08:39→20:27)
[2018-05-26] MEDS: NICOTINE 21 MG/24 HR PATCH.TD24 TD SCH (08:43)
[2018-05-26 13:07] LABS: HEMOGLOBIN A1C 7.8 % (4.2-6.3)
[2018-05-26 19:42] VITALS: BP 127/83
[2018-05-26] MEDS: TRAZODONE 100MG TABLET PO PRN (20:27)
[2018-05-26] MEDS: ATORVASTATIN 20 MG TABLET PO SCH (20:28)
[2018-05-27] MEDS ORDERED: INSULIN GLARGINE 100 UNITS/ML, PEN SQ-INSULIN SCH ×2 (07:30→21:00)
[2018-05-27] MEDS: INSULIN LISPRO 100 UNITS/ML, PEN SQ-INSULIN SCH ×4 (07:30→20:13)
[2018-05-27 08:02] VITALS: BP 132/83
[2018-05-27] MEDS: ACETAMINOPHEN 325 MG TABLET PO PRN ×2 (08:50→20:04)
[2018-05-27] MEDS: PANTOPROZOLE 40MG TABLET PO SCH (08:50)
[2018-05-27] MEDS: ACAMPROSATE 333 MG TABLET.DR PO SCH ×3 (08:50→20:05)
[2018-05-27] MEDS: HYDROXYZINE PAMOATE 25MG CAP PO PRN ×2 (08:50→20:04)
[2018-05-27] MEDS: THIAMINE 100MG TABLET PO SCH (08:50)
[2018-05-27] MEDS: CITALOPRAM 20 MG TABLET PO SCH (08:50)
[2018-05-27] MEDS: metFORMIN 500 MG TABLET PO SCH ×2 (08:51→17:24)
[2018-05-27] MEDS: METOPROLOL TARTRATE 25 MG TABLET PO SCH ×2 (08:51→20:04)
[2018-05-27] MEDS: NICOTINE 21 MG/24 HR PATCH.TD24 TD SCH (08:52)
[2018-05-27] MEDS ORDERED: ACAM333T7 PO (12:12)
[2018-05-27] MEDS ORDERED: METO25TA35 PO (12:12)
[2018-05-27] MEDS ORDERED: THIA100T67 PO (12:12)
[2018-05-27] MEDS ORDERED: CITA20TA9 PO (12:12)
[2018-05-27] MEDS ORDERED: ATOR20TA9 PO (12:12)
[2018-05-27] MEDS ORDERED: INSU100I13 SQ-INSULIN ×2 (12:12)
[2018-05-27] MEDS ORDERED: METF500T PO (12:12)
[2018-05-27] MEDS ORDERED: NICO-487 TD (12:12)
[2018-05-27] MEDS ORDERED: PANT40TA5 PO (12:12)
[2018-05-27 19:30] VITALS: BP 144/89
[2018-05-27] MEDS: TRAZODONE 100MG TABLET PO PRN (20:04)
[2018-05-27] MEDS: ATORVASTATIN 20 MG TABLET PO SCH (20:04)
[2018-05-28] MEDS ORDERED: INSULIN GLARGINE 100 UNITS/ML, PEN SQ-INSULIN SCH (07:30)
[2018-05-28] MEDS: ACETAMINOPHEN 325 MG TABLET PO PRN (07:51)
[2018-05-28] MEDS: metFORMIN 500 MG TABLET PO SCH (07:51)
[2018-05-28] MEDS: PANTOPROZOLE 40MG TABLET PO SCH (07:51)
[2018-05-28] MEDS: INSULIN LISPRO 100 UNITS/ML, PEN SQ-INSULIN SCH (07:56)
[2018-05-28] MEDS: ACAMPROSATE 333 MG TABLET.DR PO SCH (08:17)
[2018-05-28] MEDS: CITALOPRAM 20 MG TABLET PO SCH (08:17)
[2018-05-28] MEDS: THIAMINE 100MG TABLET PO SCH (08:17)
[2018-05-28] MEDS: NICOTINE 21 MG/24 HR PATCH.TD24 TD SCH (08:18)
[2018-05-28 08:21] VITALS: BP 147/93
[2018-05-28] MEDS: METOPROLOL TARTRATE 25 MG TABLET PO SCH (08:24)
== END 2018-05-28 10:10 | DRG 885 ==
LOC: 4EST 16:16 → 3E 16:34
PROVIDERS: ADMIT Counselor Mental Health; ATTEND Counselor Mental Health
DX: F33.1 Major depressive disorder, recurrent, moderate (principal); R45.851 Suicidal ideations; E11.9 Type 2 diabetes mellitus without complications; E78.5 Hyperlipidemia, unspecified; F10.20 Alcohol dependence, uncomplicated; I10 Essential (primary) hypertension; K21.9 Gastro-esophageal reflux disease without esophagitis; F12.10 Cannabis abuse, uncomplicated; F17.210 Nicotine dependence, cigarettes, uncomplicated; G47.00 Insomnia, unspecified; Z79.4 Long term (current) use of insulin; Z79.899 Other long term (current) drug therapy; Z91.030 Bee allergy status; Z91.041 Radiographic dye allergy status
CPT/HCPCS: 36415; 80048; 80053; 80061; 82040; 82140; 82607; 82962; 83036; 84436; 84443; 85025; 85651; 86592; 92523-GN; J1815

== ENCOUNTER 2018-08-09 15:43 | Emergency (ER) | payer MEDICAID ==
[~2018-08-09] VITALS: Ht 172.7 cm; Wt 63.1 kg
[~2018-08-09 15:43] MED LIST changes: +ACAM333T7 PO; +ATOR20TA37 PO; +CITA20TA9 PO; +GLIP5TAB10 PO; +INSU100I13 SQ-INSULIN; +METF-688 PO; +RANI150C PO; +THIA100T67 PO
[2018-08-09 15:49] VITALS: BP 175/109
[2018-08-09 16:26] LABS: BASOPHILS # (AUTO) 0.06 x10^3/uL (0-0.1); BASOPHILS % (AUTO) 1 % (0-1); EOSINOPHILS # (AUTO) 0.25 x10^3/uL (0-0.4); EOSINOPHILS % (AUTO) 3 % (1-7); LYMPHOCYTES # (AUTO) 3.09 x10^3/uL (1-3.4); LYMPHOCYTES % (AUTO) 35 % (22-44); MD NO; MEAN CORPUSCULAR HEMOGLOBIN 26.4 pg (27.5-34.5); MEAN CORPUSCULAR HGB CONC 32.3 g/dL (33.2-36.2); MEAN CORPUSCULAR VOLUME 81.8 fL (81-97); MEAN PLATELET VOLUME 9.4 fL (7.4-10.4); MONOCYTES % (AUTO) 6 % (2-9); NEUTROPHILS # (AUTO) 4.84 x10^3/uL (1.8-6.8); NEUTROPHILS % (AUTO) 55 % (42-75); PLATELET COUNT 146 x10^3/uL (130-400); RED BLOOD COUNT 4.63 x10^6/uL (4.38-5.82); RED CELL DISTRIBUTION WIDTH 13.2 % (9.4-14.8)
[2018-08-09 16:36] LABS: ANION GAP 4 mmol/L (5-15); CALCIUM 8.9 mg/dL (8.5-10.1); CHLORIDE 109 mmol/L (98-107)
[2018-08-09 16:37] LABS: CREATININE 1.05 mg/dL (0.7-1.3)
--- NOTE | 2018-08-09 17:33 | NUR ---
Pt to room from lobby.
--- NOTE | 2018-08-09 17:50 | NUR ---
Assumed care of patient. Patient reports concern over fluctuating blood sugar. Patient states he is working with his primary to determine what DM meds will work best for him. Patient anxious.
--- NOTE | 2018-08-09 18:01 | NUR ---
Ambulated with a steady gait to the restroom.
[2018-08-09 18:26] LABS: CULTURE INDICATED? NO; MICROSCOPIC NOT IND
--- NOTE | 2018-08-09 19:12 | NUR ---
Patient/Caregiver given discharge instructions and they have confirmed that they understand the instructions. Patient ambulatory with steady gait.
== END 2018-08-09 19:13 | disposition home or self-care (01) ==
LOC: ED 18:23
DX: E11.65 Type 2 diabetes mellitus with hyperglycemia (principal); K21.9 Gastro-esophageal reflux disease without esophagitis; I10 Essential (primary) hypertension; Z79.4 Long term (current) use of insulin
CPT/HCPCS: 36415; 80048; 81003; 82040; 82962; 85025; 99283

== ENCOUNTER 2018-11-10 09:39 | Emergency (ER) | payer MEDICAID ==
[~2018-11-10] VITALS: Ht 172.7 cm; Wt 64.0 kg
[2018-11-10 09:46] VITALS: BP 147/89
[2018-11-10] MEDS ORDERED: NYSTATIN TOPICAL POWDER 15GM TP PRN (10:17)
[2018-11-10 10:44] LABS: MICROSCOPIC NOT IND
[2018-11-10 10:45] LABS: BASOPHILS # (AUTO) 0.05 x10^3/uL (0-0.1); BASOPHILS % (AUTO) 0 % (0-1); EOSINOPHILS # (AUTO) 0.43 x10^3/uL (0-0.4); EOSINOPHILS % (AUTO) 4 % (1-7); LYMPHOCYTES # (AUTO) 4.94 x10^3/uL (1-3.4); LYMPHOCYTES % (AUTO) 40 % (22-44); MD NO; MEAN CORPUSCULAR HEMOGLOBIN 25.2 pg (27.5-34.5); MEAN CORPUSCULAR HGB CONC 32.7 g/dL (33.2-36.2); MEAN CORPUSCULAR VOLUME 77.1 fL (81-97); MEAN PLATELET VOLUME 9.2 fL (7.4-10.4); MONOCYTES % (AUTO) 6 % (2-9); NEUTROPHILS % (AUTO) 51 % (42-75); PLATELET COUNT 179 x10^3/uL (130-400); RED BLOOD COUNT 5.71 x10^6/uL (4.38-5.82); RED CELL DISTRIBUTION WIDTH 14.5 % (9.4-14.8)
[2018-11-10 10:46] LABS: CULTURE INDICATED? NO
[2018-11-10 10:52] LABS: ALBUMIN 4.5 g/dL (3.4-5.0); ANION GAP 8 mmol/L (5-15); CALCIUM 9.1 mg/dL (8.5-10.1); CHLORIDE 104 mmol/L (98-107); CREATININE 0.99 mg/dL (0.7-1.3)
== END 2018-11-10 11:24 | disposition home or self-care (01) ==
LOC: ED 11:22
DX: B37.42 Candidal balanitis (principal)
CPT/HCPCS: 36415; 80048; 81003; 82040; 85025; 99283

== ENCOUNTER 2018-12-11 14:33 | Emergency (ER) | payer MEDICAID ==
[~2018-12-11] VITALS: Ht 172.7 cm; Wt 63.6 kg
[2018-12-11 14:37] VITALS: BP 121/80
--- NOTE | 2018-12-11 15:10 | NUR ---
ER MD EXAM COMPLETED AND PT OUT OF GOWN AND BACK IN CLOTHES.
--- NOTE | 2018-12-11 15:45 | NUR ---
TASK RN - PT GIVEN APPLE JUICE.
--- NOTE | 2018-12-11 16:03 | NUR ---
Patient/Caregiver given discharge instructions and they have confirmed that they understand the instructions. Patient ambulatory with steady gait. Pt left with all personal belongings.
== END 2018-12-11 16:04 | disposition home or self-care (01) ==
LOC: ED 15:04
DX: N48.1 Balanitis (principal); E11.9 Type 2 diabetes mellitus without complications
CPT/HCPCS: 82962; 99283

== ENCOUNTER 2019-07-09 19:25 | Emergency (ER) | payer MEDICAID ==
[~2019-07-09] VITALS: Ht 172.7 cm; Wt 65.5 kg
--- NOTE | 2019-07-09 19:39 | NUR ---
PER EMS: PT REQUESTED DETOX, WANTED TO GO TO [place]. PT STATES HE DOESN'T KNOW WHY HE'S HERE. STATES [employer] WAS AT HIS HOUSE "BECAUSE I WAS CRYING, OUT LOUD" ADMITS TO ETOH INTAKE: "A LOT". REFUSING TO ANSWER MENTAL HEALTH SCREEN. REFUSING TO PROVIDE URINE SPECIMEN AT THIS TIME. SIDE RAILS UP X2.
== END 2019-07-09 20:07 | disposition left against medical advice (07) ==
LOC: ED 19:45
DX: Z53.21 Procedure and treatment not carried out due to patient leaving prior to being seen by health care provider (principal)

== ENCOUNTER 2019-07-23 11:01 | Emergency (ER) | payer MEDICAID ==
[~2019-07-23] VITALS: Ht 162.6 cm; Wt 60.0 kg
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
[2019-07-23] MEDS ORDERED: EMPA1TAB7 PO (11:51)
[2019-07-23] MEDS ORDERED: BUSP15TA PO (11:51)
[2019-07-23] MEDS ORDERED: QUET300T PO (11:51)
[2019-07-23] MEDS ORDERED: DOXE50CA PO (11:51)
[2019-07-23] MEDS ORDERED: HYDR-826 PO (11:51)
[2019-07-23] MEDS ORDERED: VENL150C6 PO (11:51)
--- NOTE | 2019-07-23 11:58 | NUR ---
PATIENT NOW AWAKE. ORIENTED/PLEASANT ORIENTED TO POC VSS ON MAIN ENTREE COOK AND CASHIER LAB AT BEDSIDE-SPECIMENS OBTAINED
[2019-07-23 12:03] LABS: BASOPHILS # (AUTO) 0.02 x10^3/uL (0-0.1); BASOPHILS % (AUTO) 0 % (0-1); EOSINOPHILS # (AUTO) 0.21 x10^3/uL (0-0.4); EOSINOPHILS % (AUTO) 4 % (1-7); LYMPHOCYTES # (AUTO) 2.29 x10^3/uL (1-3.4); LYMPHOCYTES % (AUTO) 45 % (22-44); MD NO; MEAN CORPUSCULAR HEMOGLOBIN 25.8 pg (27.5-34.5); MEAN CORPUSCULAR HGB CONC 32.4 g/dL (33.2-36.2); MEAN CORPUSCULAR VOLUME 79.7 fL (81-97); MEAN PLATELET VOLUME 8.6 fL (7.4-10.4); MONOCYTES # (AUTO) 0.27 x10^3/uL (0.2-0.8); MONOCYTES % (AUTO) 5 % (2-9); NEUTROPHILS # (AUTO) 2.26 x10^3/uL (1.8-6.8); NEUTROPHILS % (AUTO) 45 % (42-75); PLATELET COUNT 197 x10^3/uL (130-400); RED BLOOD COUNT 5.61 x10^6/uL (4.38-5.82); RED CELL DISTRIBUTION WIDTH 15.1 % (9.4-14.8)
[2019-07-23 12:15] LABS: ALBUMIN 3.5 g/dL (3.4-5.0); ANION GAP 9 mmol/L (5-15); CALCIUM 7.9 mg/dL (8.5-10.1); CHLORIDE 113 mmol/L (98-107); CREATININE 0.67 mg/dL (0.7-1.3); SALICYLATE LEVEL 3.3 mg/dL (2.8-20.0)
[2019-07-23] MEDS ORDERED: LORazepam 1MG TABLET ONE ×2 (12:27→12:39)
[2019-07-23] MEDS ORDERED: LORazepam 1MG TABLET PO ONE (12:30)
[2019-07-23] MEDS ORDERED: HALOPERIDOL 5 MG/ML ONE (12:44)
[2019-07-23] MEDS ORDERED: LORazepam 2 MG/ML, 1ML ONE (12:44)
[2019-07-23] MEDS ORDERED: DIPHENHYDRAMINE 50 MG/ML, 1ML ONE (12:44)
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
[2019-07-23] MEDS ORDERED: HALOPERIDOL 5 MG/ML IM PRN (13:00)
[2019-07-23] MEDS ORDERED: LORazepam 2 MG/ML, 1ML IM PRN (13:00)
[2019-07-23] MEDS ORDERED: DIPHENHYDRAMINE 50 MG/ML, 1ML IM PRN (13:00)
--- NOTE | 2019-07-23 13:34 | NUR ---
PT SECURED BY HANDS ONLY BY SECURITY DURING IM INJECTION OF MEDS. PT CONTINUED TO BE AGITATED, THREATENING, AND NOT RELAXING AFTER GIVING MED TIME TO WORK. PT PLACED IN 4-POINT RESTRAINTS TO ALLOW PT TO RELAX AND LET MEDS WORK. PT SOON RELAXED AND WENT TO SLEEP. RESTRAINTS WERE REMOVED APPROXIMATELY 15 MINUTES LATER. 1:1 SITTER AT BEDSIDE WITH DIRECT LINE OF SITE. VSS. PT CONNECTED TO MONITORING.
--- NOTE | 2019-07-23 14:03 | NUR ---
PT SLEEPING ON [facility]. CONNECTED TO MONITORING. ARISTEO. 1:1 SITTER IN DIRECT SITE LINE.
--- NOTE | 2019-07-23 15:28 | NUR ---
PT SLEEPING ON [facility]. ARISTEO. PT IN DIRECT SIGHT ON SITTER.
--- NOTE | 2019-07-23 16:58 | NUR ---
PT SLEEPING ON [facility]. ARISTEO. PT IN DIRECT SIGHT ON SITTER.
--- NOTE | 2019-07-23 18:54 | NUR ---
PT SLEEPING ON [place]. ARISTEO. PT IN DIRECT SIGHT OF SITTER.
--- NOTE | 2019-07-23 19:54 | NUR ---
PT WOKEN UP FOR BREATHALIZER, .113. PT COMPLIANT WITH CARE. PT SPEAKING ON COMPLETE SENTANCES. WATER AND DINNER TRAY GIVEN. SITTER IN DIRECT EYE LINE.
--- NOTE | 2019-07-23 21:44 | NUR ---
BREATHALIZER NOW 0.042
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
[2019-07-23 22:15] VITALS: BP 129/74
== END 2019-07-23 22:17 | disposition home or self-care (01) ==
LOC: ED 16:06
DX: R45.851 Suicidal ideations (principal); F32.9 Major depressive disorder, single episode, unspecified; F10.120 Alcohol abuse with intoxication, uncomplicated; Y90.0 Blood alcohol level of less than 20 mg/100 ml; J44.9 Chronic obstructive pulmonary disease, unspecified; I10 Essential (primary) hypertension; E11.9 Type 2 diabetes mellitus without complications
CPT/HCPCS: 36415; 80048; 80307; 82040; 85025; 96372; 99283; J1200; J1630; J2060

== ENCOUNTER 2020-01-18 12:59 | Inpatient (IN) | payer MEDICAID ==
[~2020-01-18] VITALS: Ht 172.7 cm; Wt 62.7 kg
[~2020-01-18 12:59] MED LIST changes: +BUSP15TA PO; +DOXE50CA PO; +EMPA1TAB7 PO; +HYDR-826 PO; +QUET300T PO; +VENL150C6 PO
--- NOTE | 2020-01-18 13:25 | NUR ---
[facility] called for seizure. Patient went into SVT while with [facility]. Converted wiht 1 L NS and vagal maneuvers. In ED with C/O palpitations, but in NSR. Last drink was Thursday. Hx of seizures with EtOH withdrawal. Patient initally in NSR, but went in to SVT in the 200-210s within minutes of being in ED. Converted back to NSR with 6mg Adenosine. BP stable. Oriented to self and place, thinks its 2019. C/O right lateral rib pain and lac to posterior head. FSBS = 341. Patient states he had tried to quit drinking so that he could go back to work.
[2020-01-18] MEDS ORDERED: THIAMINE 100MG TABLET PO ONE (13:30)
[2020-01-18] MEDS ORDERED: SODIUM CHLORIDE FLUSH 10ML SYR IVF ONE (13:30)
[2020-01-18] MEDS ORDERED: SODIUM CHLORIDE 0.9% 1,000ML IVBOLUS ONE (13:30)
[2020-01-18] MEDS ORDERED: ADENOSINE 6 MG/2 ML IVPush ONE (13:30)
--- NOTE | 2020-01-18 13:45 | NUR ---
Remains in NSR in 100s. Patient states, "I feel relaxed." Attempted to void per urinal, but unable at this time. Provided with blanket. No other needs at this time.
--- NOTE | 2020-01-18 13:58 | NUR ---
nail tech at bedside irrigating lac
[2020-01-18] MEDS ORDERED: DIPH,PERTUSS(ACELL),TET VAC/PF 0.5 ML IM-VACC ONE ×2 (14:00→16:00)
[2020-01-18 14:03] LABS: BASOPHILS # (AUTO) 0.02 x10^3/uL (0-0.1); BASOPHILS % (AUTO) 0 % (0-1); EOSINOPHILS # (AUTO) 0.09 x10^3/uL (0-0.4); EOSINOPHILS % (AUTO) 1 % (1-7); LYMPHOCYTES # (AUTO) 1.74 x10^3/uL (1-3.4); LYMPHOCYTES % (AUTO) 28 % (22-44); MD NO; MEAN CORPUSCULAR HEMOGLOBIN 28.2 pg (27.5-34.5); MEAN CORPUSCULAR HGB CONC 33.7 g/dL (33.2-36.2); MEAN CORPUSCULAR VOLUME 83.7 fL (81-97); MONOCYTES # (AUTO) 0.29 x10^3/uL (0.2-0.8); MONOCYTES % (AUTO) 5 % (2-9); NEUTROPHILS # (AUTO) 4.11 x10^3/uL (1.8-6.8); NEUTROPHILS % (AUTO) 66 % (42-75); PLATELET COUNT 122 x10^3/uL (130-400); RED BLOOD COUNT 4.83 x10^6/uL (4.38-5.82); RED CELL DISTRIBUTION WIDTH 13.1 % (9.4-14.8)
[2020-01-18 14:09] LABS: INTERNATIONAL NORMALIZED RATIO 1.17 (0.93-1.1); PROTHROMBIN TIME 12.4 Seconds (9.6-11.5)
[2020-01-18 14:12] LABS: ALBUMIN 3.4 g/dL (3.4-5.0); ANION GAP 8 mmol/L (5-15); CALCIUM 7.7 mg/dL (8.5-10.1); CHLORIDE 103 mmol/L (98-107)
[2020-01-18 14:18] LABS: ALANINE AMINOTRANSFERASE 101 U/L (12-78); ALKALINE PHOSPHATASE 173 U/L (45-117); BILIRUBIN,TOTAL 2.1 mg/dL (0.2-1.0); CREATININE 1.08 mg/dL (0.7-1.3); TOTAL PROTEIN 7.4 g/dL (6.4-8.2); TROPONIN I < 0.015 ng/mL (0.000-0.045)
--- NOTE | 2020-01-18 14:36 | NUR ---
Back from xray. HR increased from low 100s to low 110s. C/O lightheadedness. BP stable. Patient denies anxiety or palpitations. MD does not want ativan at this time.
--- NOTE | 2020-01-18 14:48 | NUR ---
BREAK RN: PT SITTING UP IN NEVIN XIONG NOTED. NON-TREMULOUS, PWD. HR 100'S, NSR. SZ PRECAUTIONS IN PLACE. PT TO CT AT THIS TIME WITH TECH AND ON MACHINE PULLER.
[2020-01-18] MEDS ORDERED: LEVETIRACETAM 1,000 MG in SODIUM CHLORIDE 0.9% 100 ML IV ONE (15:30)
[2020-01-18] MEDS ORDERED: OMEP-110 PO (15:41)
[2020-01-18] MEDS ORDERED: EMPA1TAB7 PO (15:41)
[2020-01-18] MEDS ORDERED: STIOLTO INH (15:41)
[2020-01-18] MEDS ORDERED: INSU100I34 SQ (15:41)
[2020-01-18 15:47] LABS: AMPHETAMINE SCREEN, URINE Negative (Negative); BARBITURATE SCREEN, URINE Negative (Negative); BENZODIAZEPINE SCREEN, URINE Negative (Negative); CANNABINOID SCREEN, URINE Negative (Negative); COCAINE SCREEN, URINE Negative (Negative); METHADONE SCREEN, URINE Negative (Negative); OPIATE SCREEN, URINE Negative (Negative)
--- NOTE | 2020-01-18 15:50 | NUR ---
Dr. Parmar ([facility]) at bedside. RN encouraged patient to have family member burr picker home meds as pharmacy is not taking home meds due to COVID.
[2020-01-18] MEDS ORDERED: ONDANSETRON ODT 4 MG PO PRN (16:00)
[2020-01-18] MEDS ORDERED: DOCUSATE 100 MG CAPSULE PO PRN (16:00)
[2020-01-18] MEDS ORDERED: POLYETHYLENE GLYCOL 17 GM PACKET PO PRN (16:00)
[2020-01-18] MEDS ORDERED: LORazepam 2 MG/ML, 1ML IV PRN ×5 (16:00)
[2020-01-18] MEDS ORDERED: NICOTINE 21 MG/24 HR PATCH.TD24 TD ONE (16:00)
[2020-01-18] MEDS ORDERED: THIAMINE 100MG TABLET ONE (16:00)
[2020-01-18] MEDS ORDERED: ACETAMINOPHEN 325 MG TABLET PO PRN (16:00)
[2020-01-18] MEDS ORDERED: LORazepam 0.5MG TABLET PO PRN (16:00)
[2020-01-18] MEDS ORDERED: POTASSIUM CHLORIDE 20 MEQ, MAGNESIUM SULFATE 1 GM, MVI ADULT 10 ML, THIAMINE 200 MG, FO... IV ONE (16:00)
[2020-01-18] MEDS ORDERED: LORazepam 1MG TABLET PO PRN ×4 (16:00)
--- NOTE | 2020-01-18 16:19 | NUR ---
Meds admin. VSS. No needs. Awaiting room assignment.
--- NOTE | 2020-01-18 16:52 | NUR ---
Report to JAMES Beck.
[2020-01-18] MEDS: METOPROLOL TARTRATE 25 MG TAB PO SCH ×2 (17:32→19:55)
[2020-01-18 19:48] VITALS: BP 118/80
[2020-01-18] MEDS ORDERED: LEVETIRACETAM 500 MG TABLET PO SCH (21:00)
[2020-01-18] MEDS: LEVETIRACETAM 500 MG TABLET PO SCH (21:02)
[2020-01-18] MEDS: BUSPIRONE 5 MG TABLET PO SCH (21:02)
[2020-01-18] MEDS: INSULIN LISPRO 100 UNITS/ML, PEN SQ-INSULIN SCH (21:03)
[2020-01-18] MEDS: morphine SULFATE 10 MG/ML, 1ML IVPush PRN (21:04)
[2020-01-18] MEDS ORDERED: ALBUTEROL/IPRATROPIUM 2.5MG/0.5MG, 3 ML NPPB PRN (22:00)
[2020-01-19 01:07] VITALS: BP 110/68
[2020-01-19] MEDS: morphine SULFATE 10 MG/ML, 1ML IVPush PRN ×3 (01:16→20:39)
[2020-01-19] MEDS: ONDANSETRON 2MG/ML, 2ML IVPush PRN ×2 (03:34→15:18)
[2020-01-19 06:54] VITALS: BP 124/94
[2020-01-19 07:06] LABS: BASOPHILS # (AUTO) 0.03 x10^3/uL (0-0.1); BASOPHILS % (AUTO) 0 % (0-1); EOSINOPHILS # (AUTO) 0.24 x10^3/uL (0-0.4); EOSINOPHILS % (AUTO) 3 % (1-7); LYMPHOCYTES # (AUTO) 3.51 x10^3/uL (1-3.4); LYMPHOCYTES % (AUTO) 50 % (22-44); MD NO; MEAN CORPUSCULAR HGB CONC 33.2 g/dL (33.2-36.2); MEAN CORPUSCULAR VOLUME 84.3 fL (81-97); MEAN PLATELET VOLUME 9.2 fL (7.4-10.4); MONOCYTES # (AUTO) 0.42 x10^3/uL (0.2-0.8); MONOCYTES % (AUTO) 6 % (2-9); NEUTROPHILS # (AUTO) 2.76 x10^3/uL (1.8-6.8); NEUTROPHILS % (AUTO) 40 % (42-75); PLATELET COUNT 117 x10^3/uL (130-400); RED BLOOD COUNT 4.23 x10^6/uL (4.38-5.82); RED CELL DISTRIBUTION WIDTH 13.2 % (9.4-14.8)
[2020-01-19 07:18] LABS: ALANINE AMINOTRANSFERASE 94 U/L (12-78); ANION GAP 8 mmol/L (5-15); CALCIUM 7.9 mg/dL (8.5-10.1); CHLORIDE 106 mmol/L (98-107)
[2020-01-19 07:20] LABS: ALKALINE PHOSPHATASE 138 U/L (45-117); BILIRUBIN,TOTAL 1.6 mg/dL (0.2-1.0); TOTAL PROTEIN 6.3 g/dL (6.4-8.2)
[2020-01-19] MEDS: INSULIN LISPRO 100 UNITS/ML, PEN SQ-INSULIN SCH ×4 (08:17→20:38)
[2020-01-19] MEDS: FOLIC ACID 1 MG TABLET PO SCH (08:18)
[2020-01-19] MEDS: VENLAFAXINE 75 MG CAP ER PO SCH (08:18)
[2020-01-19] MEDS: THIAMINE 100MG TABLET PO SCH (08:18)
[2020-01-19] MEDS: OMEPRAZOLE 20 MG CAPSULE.DR PO SCH (08:18)
[2020-01-19] MEDS: BUSPIRONE 5 MG TABLET PO SCH ×2 (08:18→20:38)
[2020-01-19] MEDS: METOPROLOL TARTRATE 25 MG TAB PO SCH ×2 (08:19→20:39)
[2020-01-19] MEDS: MULTIVITAMINS/MINERALS TABLET PO SCH (08:19)
[2020-01-19] MEDS: LEVETIRACETAM 500 MG TABLET PO SCH ×2 (08:28→20:39)
[2020-01-19] MEDS ORDERED: STIOLTO 2.5 MCG HOMEINH SCH (09:00)
[2020-01-19] MEDS: ALBUTEROL/IPRATROPIUM 2.5MG/0.5MG, 3 ML NPPB SCH ×3 (09:14→21:00)
[2020-01-19 12:29] VITALS: BP 132/89
[2020-01-19] MEDS ORDERED: NICOTINE 21 MG/24 HR PATCH.TD24 ONE (16:46)
[2020-01-19] MEDS ORDERED: PROMETHAZINE 25 MG/ML, 1ML IM PRN (17:00)
[2020-01-19 19:02] VITALS: BP 113/72
[2020-01-20 00:17] VITALS: BP 114/73
[2020-01-20] MEDS: ALBUTEROL/IPRATROPIUM 2.5MG/0.5MG, 3 ML NPPB SCH ×2 (02:17→07:43)
[2020-01-20 06:14] LABS: BASOPHILS # (AUTO) 0.03 x10^3/uL (0-0.1); BASOPHILS % (AUTO) 0 % (0-1); EOSINOPHILS # (AUTO) 0.18 x10^3/uL (0-0.4); EOSINOPHILS % (AUTO) 3 % (1-7); LYMPHOCYTES % (AUTO) 44 % (22-44); MD NO; MEAN CORPUSCULAR HEMOGLOBIN 27.6 pg (27.5-34.5); MEAN CORPUSCULAR HGB CONC 33.4 g/dL (33.2-36.2); MEAN CORPUSCULAR VOLUME 82.6 fL (81-97); MEAN PLATELET VOLUME 8.9 fL (7.4-10.4); MONOCYTES # (AUTO) 0.41 x10^3/uL (0.2-0.8); MONOCYTES % (AUTO) 7 % (2-9); NEUTROPHILS # (AUTO) 2.86 x10^3/uL (1.8-6.8); NEUTROPHILS % (AUTO) 46 % (42-75); PLATELET COUNT 114 x10^3/uL (130-400); RED BLOOD COUNT 3.91 x10^6/uL (4.38-5.82); RED CELL DISTRIBUTION WIDTH 13.1 % (9.4-14.8)
[2020-01-20 06:24] LABS: ALBUMIN 2.8 g/dL (3.4-5.0); ANION GAP 7 mmol/L (5-15); CALCIUM 8.1 mg/dL (8.5-10.1); CHLORIDE 104 mmol/L (98-107)
[2020-01-20 06:27] LABS: ALANINE AMINOTRANSFERASE 98 U/L (12-78); ALKALINE PHOSPHATASE 121 U/L (45-117); BILIRUBIN,TOTAL 0.9 mg/dL (0.2-1.0); CREATININE 0.69 mg/dL (0.7-1.3); TOTAL PROTEIN 6.1 g/dL (6.4-8.2)
[2020-01-20] MEDS: INSULIN LISPRO 100 UNITS/ML, PEN SQ-INSULIN SCH (07:00)
[2020-01-20 07:15] VITALS: BP 143/92
[2020-01-20] MEDS ORDERED: ALBUTEROL/IPRATROPIUM 2.5MG/0.5MG, 3 ML NPPB SCH (08:00)
[2020-01-20] MEDS ORDERED: NICOTINE 21 MG/24 HR PATCH.TD24 TD SCH (09:00)
[2020-01-20] MEDS ORDERED: LEVE500T53 PO (09:36)
[2020-01-20] MEDS ORDERED: FOLI-17 PO (09:36)
[2020-01-20] MEDS ORDERED: THIA100T67 PO (09:36)
[2020-01-20] MEDS: FOLIC ACID 1 MG TABLET PO SCH (09:50)
[2020-01-20] MEDS: ONDANSETRON 2MG/ML, 2ML IVPush PRN (09:50)
[2020-01-20] MEDS: morphine SULFATE 10 MG/ML, 1ML IVPush PRN (09:50)
[2020-01-20] MEDS: VENLAFAXINE 75 MG CAP ER PO SCH (09:50)
[2020-01-20] MEDS: BUSPIRONE 5 MG TABLET PO SCH (09:50)
[2020-01-20] MEDS: LEVETIRACETAM 500 MG TABLET PO SCH (09:51)
[2020-01-20] MEDS: METOPROLOL TARTRATE 25 MG TAB PO SCH (09:51)
[2020-01-20] MEDS: MULTIVITAMINS/MINERALS TABLET PO SCH (09:51)
[2020-01-20] MEDS: OMEPRAZOLE 20 MG CAPSULE.DR PO SCH (09:51)
[2020-01-20] MEDS: THIAMINE 100MG TABLET PO SCH (09:51)
== END 2020-01-20 11:00 | disposition home or self-care (01) | DRG 432 ==
LOC: ED 14:39 → ORIP 15:45 → 4WST 17:11 → DCLOUNGE 01-20 10:53
PROVIDERS: ADMIT Emergency Medicine; ATTEND Emergency Medicine
PROC: 0HQ0XZZ Repair Scalp Skin, External Approach (ICD-10-PCS; principal; 2020-01-18)
DX: K70.10 Alcoholic hepatitis without ascites (principal); S06.6X9A Traumatic subarachnoid hemorrhage with loss of consciousness of unspecified duration, initial encounter; S22.41XA Multiple fractures of ribs, right side, initial encounter for closed fracture; F10.239 Alcohol dependence with withdrawal, unspecified; I47.1 Supraventricular tachycardia; D69.6 Thrombocytopenia, unspecified; S01.01XA Laceration without foreign body of scalp, initial encounter; G40.909 Epilepsy, unspecified, not intractable, without status epilepticus; E11.65 Type 2 diabetes mellitus with hyperglycemia; F41.9 Anxiety disorder, unspecified; G89.29 Other chronic pain; I10 Essential (primary) hypertension; I25.10 Atherosclerotic heart disease of native coronary artery without angina pectoris; I48.91 Unspecified atrial fibrillation; J45.909 Unspecified asthma, uncomplicated; K21.9 Gastro-esophageal reflux disease without esophagitis; M54.9 Dorsalgia, unspecified; W18.39XA Other fall on same level, initial encounter; F41.1 Generalized anxiety disorder; Z87.11 Personal history of peptic ulcer disease; Z91.14 Patient's other noncompliance with medication regimen; Z91.030 Bee allergy status; Z91.041 Radiographic dye allergy status; Y93.89 Activity, other specified; Y92.89 Other specified places as the place of occurrence of the external cause; Y99.8 Other external cause status
CPT/HCPCS: 12002; 36415; 70450; 71045; 80053; 80307; 82550; 82962; 83036; 84443; 84484; 85025; 85610; 90715; 93005; 94640; 96374; G0378; J0153; J1953; J2405; J2550; J3411; J3475; J3480; Q0162; J1815; J2060; J2270; J7030

== ENCOUNTER 2020-03-31 02:55 | Inpatient (IN) | payer MEDICAID ==
[~2020-03-31] VITALS: Ht 172.7 cm; Wt 52.4 kg
[~2020-03-31 02:55] MED LIST changes: +FOLI-17 PO; +INSU100I34 SQ; +LEVE500T53 PO; +OMEP-110 PO; +STIOLTO INH
[2020-03-31] MEDS ORDERED: SODIUM CHLORIDE 0.9% 1,000ML IVBOLUS ONE (03:30)
[2020-03-31] MEDS ORDERED: DEXTROSE 50%, 50ML SYRINGE ONE ×3 (03:54→13:46)
[2020-03-31 04:07] LABS: PH, VENOUS 7.169 pH (7.320-7.420)
[2020-03-31 04:14] LABS: BASOPHILS # (AUTO) 0.03 x10^3/uL (0-0.1); BASOPHILS % (AUTO) 0 % (0-1); EOSINOPHILS # (AUTO) 0.14 x10^3/uL (0-0.4); EOSINOPHILS % (AUTO) 2 % (1-7); LYMPHOCYTES # (AUTO) 1.52 x10^3/uL (1-3.4); LYMPHOCYTES % (AUTO) 16 % (22-44); MD NO; MEAN CORPUSCULAR HEMOGLOBIN 25.8 pg (27.5-34.5); MEAN CORPUSCULAR HGB CONC 31.7 g/dL (33.2-36.2); MEAN CORPUSCULAR VOLUME 81.6 fL (81-97); MEAN PLATELET VOLUME 9.8 fL (7.4-10.4); MONOCYTES # (AUTO) 0.07 x10^3/uL (0.2-0.8); MONOCYTES % (AUTO) 1 % (2-9); NEUTROPHILS # (AUTO) 7.86 x10^3/uL (1.8-6.8); NEUTROPHILS % (AUTO) 82 % (42-75); PLATELET COUNT 158 x10^3/uL (130-400); RED BLOOD COUNT 4.21 x10^6/uL (4.38-5.82); RED CELL DISTRIBUTION WIDTH 13.4 % (9.4-14.8)
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
[2020-03-31 04:19] LABS: ALANINE AMINOTRANSFERASE 18 U/L (12-78); ALBUMIN 2.8 g/dL (3.4-5.0); ANION GAP 2 mmol/L (5-15); CALCIUM 7.8 mg/dL (8.5-10.1); CHLORIDE 108 mmol/L (98-107)
[2020-03-31 04:22] LABS: ALKALINE PHOSPHATASE 92 U/L (45-117); BILIRUBIN,TOTAL 0.1 mg/dL (0.2-1.0); TOTAL PROTEIN 6.4 g/dL (6.4-8.2)
[2020-03-31 04:59] LABS: ACETONE, SERUM Trace (Negative)
[2020-03-31 05:13] LABS: TROPONIN I < 0.015 ng/mL (0.000-0.045)
--- NOTE | 2020-03-31 05:39 | NUR ---
REPEAT FINGERSTICK FOUND PT SUGAR TO BE 43. AMP D50 GIVEN, PT MORE ALERT AT THIS TIME.
[2020-03-31] MEDS ORDERED: D5%-0.45NACL+KCL 40MEQ 1,000 ML IV ONE (05:40)
[2020-03-31] MEDS ORDERED: NALOXONE 1 MG/ML, 2ML ONE (05:47)
--- NOTE | 2020-03-31 06:06 | NUR ---
[facility] CONTACTED PER PT REQ
--- NOTE | 2020-03-31 06:24 | NUR ---
PT AMBULATED TO RESTROOM AND PROVIDED UA
[2020-03-31 06:46] LABS: MICROSCOPIC NOT IND
--- NOTE | 2020-03-31 06:53 | NUR ---
REPORT RECEIVED FROM JAMES SOLARES FOR TRANSFER OF CARE AT PATIENT BEDSIDE.
[2020-03-31] MEDS ORDERED: ENALAPRILAT 1.25 MG/ML, 2ML IVPush PRN (07:30)
[2020-03-31] MEDS ORDERED: POLYETHYLENE GLYCOL 17 GM PACKET PO PRN (07:30)
[2020-03-31] MEDS ORDERED: BISACODYL 10 MG SUPP PR PRN (07:30)
[2020-03-31] MEDS ORDERED: D5%-0.9% NACL 1,000 ML IV SCH (07:30)
[2020-03-31] MEDS ORDERED: ONDANSETRON 2MG/ML, 2ML IVPush PRN (07:30)
[2020-03-31] MEDS ORDERED: ACETAMINOPHEN 325 MG TABLET PO PRN (07:30)
[2020-03-31] MEDS ORDERED: LABETALOL 5MG/ML, 20ML IVPush PRN (07:30)
[2020-03-31] MEDS ORDERED: OMEPRAZOLE 20 MG CAPSULE.DR ONE (07:32)
[2020-03-31] MEDS ORDERED: SENNA/DOCUSATE TABLET ONE (07:32)
[2020-03-31] MEDS ORDERED: ENOXAPARIN 40 MG/0.4 ML ONE (07:32)
[2020-03-31] MEDS ORDERED: LEVETIRACETAM 500 MG TABLET ONE (07:33)
[2020-03-31] MEDS: ENOXAPARIN 40 MG/0.4 ML SQ SCH (07:39)
[2020-03-31] MEDS: OMEPRAZOLE 20 MG CAPSULE.DR PO SCH (07:40)
[2020-03-31] MEDS: LEVETIRACETAM 500 MG TABLET PO SCH ×2 (07:40→20:56)
[2020-03-31] MEDS: SENNA/DOCUSATE TABLET PO SCH (07:40)
--- NOTE | 2020-03-31 07:46 | NUR ---
PATIENT MEDICATED PER eMAR, CALL LIGHT WITHIN REACH, PATIENT LYING IN GURNEY WATCHING TV, NO FURTHER NEEDS AT THIS TIME.
--- NOTE | 2020-03-31 08:29 | NUR ---
[facility] CALLED TO [facility].
--- NOTE | 2020-03-31 08:56 | NUR ---
PATIENT TRANSFERRED TO CCU VIA GURNEY BY WELDER FITTER APPRENTICE AND THIS RN. PATIENT IN STABLE CONDITION, ALL PATIENT BELONGINGS GATHERED AND TAKEN UP WITH PATIENT. TRANSFER OF CARE TO [facility].
[2020-03-31] MEDS ORDERED: PLEASE ENTER HEIGHT AND WEIGHT MC SCH (09:00)
[2020-03-31 09:16] VITALS: BP 125/74
[2020-03-31] MEDS: BUSPIRONE 5 MG TABLET PO SCH ×2 (11:02→20:56)
[2020-03-31] MEDS: VENLAFAXINE 75 MG CAP ER PO SCH (11:02)
[2020-03-31] MEDS ORDERED: DEXTROSE 50%, 50ML SYRINGE IVPush STA (13:41)
[2020-03-31] MEDS ORDERED: DEXTROSE 10%, 250ML IV ONE (15:30)
[2020-03-31 18:54] LABS: ANION GAP 5 mmol/L (5-15); CALCIUM 8.2 mg/dL (8.5-10.1); CHLORIDE 114 mmol/L (98-107); CREATININE 0.53 mg/dL (0.7-1.3)
[2020-03-31] MEDS ORDERED: QUET300T PO (19:51)
[2020-03-31] MEDS ORDERED: CEPH500T PO (19:51)
[2020-03-31] MEDS ORDERED: IBUP-1222 PO (19:51)
[2020-03-31] MEDS ORDERED: NICO-487 TD (19:51)
[2020-03-31] MEDS ORDERED: TRAM50TA2 PO (19:51)
[2020-03-31] MEDS ORDERED: BUPR1TAB45 SL (19:51)
[2020-03-31] MEDS ORDERED: CITA20TA6 PO (19:51)
[2020-03-31] MEDS ORDERED: ACET325T26 PO (19:51)
[2020-03-31] MEDS: QUETIAPINE 100MG TABLET PO SCH (20:56)
[2020-04-01 04:26] LABS: BASOPHILS # (AUTO) 0.04 x10^3/uL (0-0.1); BASOPHILS % (AUTO) 1 % (0-1); EOSINOPHILS # (AUTO) 0.49 x10^3/uL (0-0.4); EOSINOPHILS % (AUTO) 6 % (1-7); LYMPHOCYTES # (AUTO) 2.92 x10^3/uL (1-3.4); LYMPHOCYTES % (AUTO) 34 % (22-44); MD NO; MEAN CORPUSCULAR HEMOGLOBIN 25.7 pg (27.5-34.5); MEAN CORPUSCULAR HGB CONC 31.9 g/dL (33.2-36.2); MEAN CORPUSCULAR VOLUME 80.3 fL (81-97); MEAN PLATELET VOLUME 9.2 fL (7.4-10.4); MONOCYTES # (AUTO) 0.45 x10^3/uL (0.2-0.8); MONOCYTES % (AUTO) 5 % (2-9); NEUTROPHILS # (AUTO) 4.75 x10^3/uL (1.8-6.8); NEUTROPHILS % (AUTO) 55 % (42-75); PLATELET COUNT 169 x10^3/uL (130-400); RED BLOOD COUNT 4.19 x10^6/uL (4.38-5.82); RED CELL DISTRIBUTION WIDTH 13.4 % (9.4-14.8)
[2020-04-01 04:37] LABS: ALANINE AMINOTRANSFERASE 17 U/L (12-78); ALBUMIN 2.6 g/dL (3.4-5.0); ANION GAP 3 mmol/L (5-15); CALCIUM 7.8 mg/dL (8.5-10.1); CHLORIDE 118 mmol/L (98-107); CREATININE 0.47 mg/dL (0.7-1.3)
[2020-04-01 04:39] LABS: ALKALINE PHOSPHATASE 92 U/L (45-117); BILIRUBIN,TOTAL 0.2 mg/dL (0.2-1.0); TOTAL PROTEIN 5.8 g/dL (6.4-8.2)
[2020-04-01 04:47] VITALS: BP 105/63
[2020-04-01] MEDS ORDERED: D5%-0.45% NACL 1,000 ML IV SCH (07:00)
[2020-04-01] MEDS ORDERED: MAGNESIUM SULFATE PMX 4GM/100M 100 ML IV ONE (07:00)
[2020-04-01] MEDS ORDERED: D5%-0.9% NACL 1,000 ML IV SCH (07:30)
[2020-04-01] MEDS: ENOXAPARIN 40 MG/0.4 ML SQ SCH (07:36)
[2020-04-01] MEDS ORDERED: GLUCAGON 1 MG IM PRN (08:00)
[2020-04-01] MEDS ORDERED: DEXTROSE 50%, 50ML SYRINGE IVPush PRN (08:00)
[2020-04-01] MEDS ORDERED: DEXTROSE 4 GM TAB.CHEW PO PRN (08:00)
[2020-04-01] MEDS: SENNA/DOCUSATE TABLET PO SCH (09:00)
[2020-04-01] MEDS: VENLAFAXINE 75 MG CAP ER PO SCH (09:35)
[2020-04-01] MEDS: OMEPRAZOLE 20 MG CAPSULE.DR PO SCH (09:35)
[2020-04-01] MEDS: LEVETIRACETAM 500 MG TABLET PO SCH ×2 (09:35→20:37)
[2020-04-01] MEDS: SODIUM CHLORIDE FLUSH 10ML SYR IVF SCH ×2 (09:36→20:38)
[2020-04-01] MEDS: NICOTINE 21 MG/24 HR PATCH.TD24 TD SCH (09:38)
[2020-04-01] MEDS: BUSPIRONE 5 MG TABLET PO SCH ×2 (09:39→20:36)
[2020-04-01 13:22] VITALS: BP 159/92
[2020-04-01] MEDS: INSULIN LISPRO 100 UNITS/ML, PEN SQ-INSULIN SCH ×2 (16:00→20:37)
[2020-04-01 18:57] VITALS: BP 176/106
[2020-04-01 19:18] VITALS: BP 159/95
[2020-04-01] MEDS: QUETIAPINE 100MG TABLET PO SCH (20:37)
[2020-04-02 00:10] VITALS: BP 153/88
[2020-04-02] MEDS: INSULIN LISPRO 100 UNITS/ML, PEN SQ-INSULIN SCH ×4 (07:00→19:59)
[2020-04-02 08:13] VITALS: BP 142/88
[2020-04-02] MEDS: LEVETIRACETAM 500 MG TABLET PO SCH ×2 (08:38→20:56)
[2020-04-02] MEDS: BUSPIRONE 5 MG TABLET PO SCH ×2 (08:38→20:55)
[2020-04-02] MEDS: VENLAFAXINE 75 MG CAP ER PO SCH (08:38)
[2020-04-02] MEDS: SENNA/DOCUSATE TABLET PO SCH (08:38)
[2020-04-02] MEDS: ENOXAPARIN 40 MG/0.4 ML SQ SCH (08:39)
[2020-04-02] MEDS: NICOTINE 21 MG/24 HR PATCH.TD24 TD SCH (08:39)
[2020-04-02] MEDS: SODIUM CHLORIDE FLUSH 10ML SYR IVF SCH ×2 (08:39→20:56)
[2020-04-02] MEDS: OMEPRAZOLE 20 MG CAPSULE.DR PO SCH (08:39)
[2020-04-02 15:31] VITALS: BP 162/96
[2020-04-02] MEDS ORDERED: INSU100I34 SQ (16:20)
[2020-04-02 20:49] VITALS: BP_SYST 181; BP_SYST 188; BP_DIAS 103; BP_DIAS 104
[2020-04-02] MEDS: QUETIAPINE 100MG TABLET PO SCH (20:56)
[2020-04-02] MEDS ORDERED: INSULIN GLARGINE 100 UNITS/ML, PEN SQ-INSULIN SCH (21:00)
[2020-04-02 21:29] VITALS: BP 156/88
[2020-04-03 00:22] VITALS: BP 125/75
[2020-04-03] MEDS: INSULIN LISPRO 100 UNITS/ML, PEN SQ-INSULIN SCH ×3 (07:00→16:00)
[2020-04-03 07:29] VITALS: BP 147/94
[2020-04-03] MEDS: NICOTINE 21 MG/24 HR PATCH.TD24 TD SCH (08:03)
[2020-04-03] MEDS: ENOXAPARIN 40 MG/0.4 ML SQ SCH (08:03)
[2020-04-03] MEDS: VENLAFAXINE 75 MG CAP ER PO SCH (08:03)
[2020-04-03] MEDS: BUSPIRONE 5 MG TABLET PO SCH (08:03)
[2020-04-03] MEDS: LEVETIRACETAM 500 MG TABLET PO SCH (08:03)
[2020-04-03] MEDS: SODIUM CHLORIDE FLUSH 10ML SYR IVF SCH (08:03)
[2020-04-03] MEDS: OMEPRAZOLE 20 MG CAPSULE.DR PO SCH (08:03)
[2020-04-03] MEDS: SENNA/DOCUSATE TABLET PO SCH (08:04)
[2020-04-03 12:41] VITALS: BP 148/91
[2020-04-03 18:48] VITALS: BP 165/103
[2020-04-03 19:03] VITALS: BP 165/99
[2020-04-03] MEDS ORDERED: METOPROLOL SUCCINATE 25 MG TAB.ER.24H ONE (19:24)
[2020-04-03] MEDS ORDERED: METOPROLOL TARTRATE 25 MG TAB PO SCH (19:30)
== END 2020-04-03 19:30 | DRG 637 ==
LOC: ED 04:44 → EDIP 06:23 → CCU 08:51 → 3N 04-01 13:11
PROVIDERS: ADMIT Internal Medicine; ATTEND Internal Medicine
DX: E11.649 Type 2 diabetes mellitus with hypoglycemia without coma (principal); E43 Unspecified severe protein-calorie malnutrition; G93.41 Metabolic encephalopathy; D68.69 Other thrombophilia; F10.239 Alcohol dependence with withdrawal, unspecified; F11.20 Opioid dependence, uncomplicated; Z68.1 Body mass index [BMI] 19.9 or less, adult; E11.65 Type 2 diabetes mellitus with hyperglycemia; E86.0 Dehydration; F10.21 Alcohol dependence, in remission; F11.10 Opioid abuse, uncomplicated; F41.1 Generalized anxiety disorder; I10 Essential (primary) hypertension; I34.0 Nonrheumatic mitral (valve) insufficiency; I48.91 Unspecified atrial fibrillation; J45.909 Unspecified asthma, uncomplicated; R68.0 Hypothermia, not associated with low environmental temperature; K21.9 Gastro-esophageal reflux disease without esophagitis; R56.9 Unspecified convulsions; Z79.4 Long term (current) use of insulin; Z82.49 Family history of ischemic heart disease and other diseases of the circulatory system; Z87.81 Personal history of (healed) traumatic fracture; Z91.030 Bee allergy status; Z91.041 Radiographic dye allergy status; Z79.899 Other long term (current) drug therapy; Z79.891 Long term (current) use of opiate analgesic
CPT/HCPCS: 36415; 96374; 99291; J7042; 80048; 80053; 80307; 81003; 82010; 82533; 82728; 82803; 82962; 83540; 83550; 83690; 83735; 84100; 84484; 85025; 87081; 93005; G0378; J1650; J1815; J3475; J3480; J7030; Q0177

== ENCOUNTER 2020-11-06 05:49 | Inpatient (IN) | payer MEDICAID ==
[~2020-11-06] VITALS: Ht 172.7 cm; Wt 54.3 kg
[~2020-11-06 05:49] MED LIST changes: +ACET325T26 PO; +ASPI-1026 PO; -ASPI-650 PO; +BUPR1TAB45 SL; +CEPH500T PO; +CITA20TA6 PO; -FOLI-17 PO; +FOLI1TAB32 PO; +IBUP-1222 PO; -NICO-487 TD; +NICO-587 TD; -PANT40TA5 PO; +PANT40TA6 PO; +TRAM50TA2 PO
--- NOTE | 2020-11-06 06:05 | NUR ---
PT RECTAL TEMP 94.7; WARMING MEASURES APPLIED TO PT.
--- NOTE | 2020-11-06 06:30 | NUR ---
PT TRANSPORTED TO CT OF HEAD.
--- NOTE | 2020-11-06 06:40 | NUR ---
PT BACK FROM CT.
[2020-11-06 06:42] LABS: BASOPHILS % (AUTO) 0 % (0-1); EOSINOPHILS % (AUTO) 0 % (1-7); LYMPHOCYTES % (AUTO) 7 % (22-44); MEAN CORPUSCULAR HEMOGLOBIN 25.7 pg (27.5-34.5); MEAN CORPUSCULAR HGB CONC 33.6 g/dL (33.2-36.2); MEAN PLATELET VOLUME 9.2 fL (7.4-10.4); MONOCYTES % (AUTO) 4 % (2-9); NEUTROPHILS % (AUTO) 88 % (42-75); PLATELET COUNT 73 x10^3/uL (130-400); RED CELL DISTRIBUTION WIDTH 13.9 % (9.4-14.8)
[2020-11-06 06:43] LABS: MD NO
[2020-11-06 06:54] LABS: ALANINE AMINOTRANSFERASE 140 U/L (12-78); ALBUMIN 4.3 g/dL (3.4-5.0); ANION GAP 13 mmol/L (5-15); CALCIUM 9.6 mg/dL (8.5-10.1); CHLORIDE 81 mmol/L (98-107); CREATININE 2.11 mg/dL (0.7-1.3)
--- NOTE | 2020-11-06 06:55 | NUR ---
REPORT GIVEN TO JAMES HOUSE.
[2020-11-06 06:56] LABS: ALKALINE PHOSPHATASE 131 U/L (45-117); BILIRUBIN,TOTAL 1.3 mg/dL (0.2-1.0); TOTAL PROTEIN 7.9 g/dL (6.4-8.2)
[2020-11-06] MEDS ORDERED: DEXTROSE 50%, 50ML SYRINGE ONE ×2 (07:07→08:13)
[2020-11-06] MEDS ORDERED: DEXTROSE 50%, 50ML SYRINGE IVPush ONE ×2 (07:30→08:30)
[2020-11-06 07:59] LABS: SALICYLATE LEVEL 7.9 mg/dL (2.8-20.0)
[2020-11-06] MEDS ORDERED: SODIUM CHLORIDE 0.9% 1,000ML IVBOLUS ONE (08:00)
[2020-11-06] MEDS ORDERED: POTASSIUM CHLORIDE IV ONE (08:30)
[2020-11-06] MEDS ORDERED: FOLIC ACID IV ONE (08:30)
[2020-11-06] MEDS ORDERED: THIAMINE IV ONE (08:30)
[2020-11-06] MEDS ORDERED: MAGNESIUM SULFATE IV ONE (08:30)
[2020-11-06] MEDS ORDERED: [UNRECOGNIZED DRUG - OTHER] IV ONE (08:30)
[2020-11-06 09:31] LABS: AMPHETAMINE SCREEN, URINE Negative (Negative); BARBITURATE SCREEN, URINE Negative (Negative); BENZODIAZEPINE SCREEN, URINE Negative (Negative); CANNABINOID SCREEN, URINE Negative (Negative); COCAINE SCREEN, URINE Negative (Negative); METHADONE SCREEN, URINE Negative (Negative); OPIATE SCREEN, URINE Negative (Negative)
[2020-11-06 09:40] LABS: MICROSCOPIC INDICATED
[2020-11-06] MEDS ORDERED: DEXTROSE 10% 1,000 ML IV SCH (10:00)
--- NOTE | 2020-11-06 10:13 | NUR ---
PHONE REPORT TO JAMES NOVOA
--- NOTE | 2020-11-06 10:19 | NUR ---
JAMES NOVOA ADVISED OF BP 84/53. SPOKE WITH MD AGGARWAL WHO WANTS PT TO BE MONITORED AND MOVED TO CCU. AWAITING FURTHER ORDERS.
[2020-11-06] MEDS ORDERED: BISACODYL 10 MG SUPP PR PRN (10:30)
[2020-11-06] MEDS ORDERED: DEXTROSE 4 GM TAB.CHEW PO PRN (10:30)
[2020-11-06] MEDS ORDERED: POTASSIUM CHLORIDE 20 MEQ, MAGNESIUM SULFATE 2 GM, THIAMINE 200 MG, FOLIC ACID 1 MG in ... IV SCH (10:30)
[2020-11-06] MEDS ORDERED: DEXTROSE 50%, 50ML SYRINGE IVPush PRN (10:30)
[2020-11-06] MEDS ORDERED: ACETAMINOPHEN 325 MG TABLET PO PRN (10:30)
[2020-11-06] MEDS ORDERED: POLYETHYLENE GLYCOL 17 GM PACKET PO PRN (10:30)
[2020-11-06] MEDS ORDERED: LABETALOL 5MG/ML, 20ML IVPush PRN (10:30)
[2020-11-06] MEDS ORDERED: GLUCAGON 1 MG IM PRN (10:30)
[2020-11-06] MEDS ORDERED: OXYcodone IR 5MG TABLET PO PRN (10:30)
[2020-11-06] MEDS ORDERED: ONDANSETRON 2MG/ML, 2ML IVPush PRN (10:30)
[2020-11-06] MEDS: D5%-0.9% NACL 1,000 ML IV SCH ×2 (12:47→18:20)
[2020-11-06] MEDS: HEPARIN 5,000 UNITS/ML, 1ML SQ SCH ×2 (12:48→20:20)
[2020-11-06] MEDS ORDERED: CALCIUM CARBONATE 500 MG TAB.CHEW ONE (15:54)
[2020-11-06] MEDS ORDERED: ALUMINUM/MAG/SIMETHICONE 30 ML UDC PO PRN (16:00)
[2020-11-06] MEDS: CALCIUM CARBONATE 500 MG TAB.CHEW PO PRN (16:03)
[2020-11-06] MEDS: SODIUM CHLORIDE FLUSH 10ML SYR IVF SCH (20:19)
[2020-11-06] MEDS: TEMAZEPAM 15 MG CAPSULE PO PRN (22:46)
[2020-11-07] MEDS: D5%-0.9% NACL 1,000 ML IV SCH ×2 (02:42→09:40)
[2020-11-07 04:00] VITALS: BP 119/79
[2020-11-07 04:28] LABS: BASOPHILS % (AUTO) 1 % (0-1); EOSINOPHILS % (AUTO) 2 % (1-7); LYMPHOCYTES % (AUTO) 31 % (22-44); MEAN CORPUSCULAR HEMOGLOBIN 26.2 pg (27.5-34.5); MEAN CORPUSCULAR HGB CONC 34.1 g/dL (33.2-36.2); MEAN PLATELET VOLUME 9.2 fL (7.4-10.4); MONOCYTES % (AUTO) 8 % (2-9); NEUTROPHILS % (AUTO) 59 % (42-75); PLATELET COUNT 54 x10^3/uL (130-400); RED BLOOD COUNT 3.91 x10^6/uL (4.38-5.82); RED CELL DISTRIBUTION WIDTH 13.9 % (9.4-14.8)
[2020-11-07 04:37] LABS: ALANINE AMINOTRANSFERASE 91 U/L (12-78); ALBUMIN 2.9 g/dL (3.4-5.0); ANION GAP 3 mmol/L (5-15); CALCIUM 7.7 mg/dL (8.5-10.1); CHLORIDE 100 mmol/L (98-107); CREATININE 0.89 mg/dL (0.7-1.3)
[2020-11-07 04:39] LABS: ALKALINE PHOSPHATASE 97 U/L (45-117); BILIRUBIN,TOTAL 0.8 mg/dL (0.2-1.0); TOTAL PROTEIN 5.4 g/dL (6.4-8.2)
[2020-11-07] MEDS: HEPARIN 5,000 UNITS/ML, 1ML SQ SCH (05:16)
[2020-11-07 05:25] LABS: MD SCAN
[2020-11-07] MEDS ORDERED: POTASSIUM CHLORIDE 40 MEQ in SODIUM CHLORIDE 0.9% 500 ML IV ONE (05:30)
[2020-11-07] MEDS ORDERED: MAGNESIUM SULFATE PMX 2GM/50ML 50 ML IV ONE (05:30)
[2020-11-07] MEDS ORDERED: POTASSIUM CHLORIDE 20 MEQ, MAGNESIUM SULFATE 2 GM, THIAMINE 200 MG, FOLIC ACID 1 MG in ... IV SCH (08:30)
[2020-11-07] MEDS: SENNA/DOCUSATE TABLET PO SCH (09:27)
[2020-11-07] MEDS: SODIUM CHLORIDE FLUSH 10ML SYR IVF SCH ×2 (09:27→20:55)
[2020-11-07] MEDS ORDERED: LORazepam 2 MG/ML, 1ML IVPush PRN (10:30)
[2020-11-07] MEDS: CALCIUM CARBONATE 500 MG TAB.CHEW PO PRN ×2 (11:27→21:55)
[2020-11-07 14:00] VITALS: BP 143/86
[2020-11-07 19:57] VITALS: BP 153/95
[2020-11-07] MEDS: TEMAZEPAM 15 MG CAPSULE PO PRN (21:52)
[2020-11-08] MEDS: D5%-0.9% NACL 1,000 ML IV SCH ×3 (01:49→08:55)
[2020-11-08 02:00] VITALS: BP 138/71
[2020-11-08 04:38] LABS: BASOPHILS % (AUTO) 1 % (0-1); EOSINOPHILS % (AUTO) 3 % (1-7); LYMPHOCYTES % (AUTO) 44 % (22-44); MEAN PLATELET VOLUME 8.4 fL (7.4-10.4); MONOCYTES % (AUTO) 13 % (2-9); NEUTROPHILS % (AUTO) 40 % (42-75); PLATELET COUNT 72 x10^3/uL (130-400); RED BLOOD COUNT 3.87 x10^6/uL (4.38-5.82); RED CELL DISTRIBUTION WIDTH 14.2 % (9.4-14.8)
[2020-11-08 04:39] LABS: MD SCAN
[2020-11-08 04:51] LABS: ANION GAP 5 mmol/L (5-15); CALCIUM 7.5 mg/dL (8.5-10.1); CHLORIDE 107 mmol/L (98-107)
[2020-11-08 04:52] LABS: CREATININE 0.76 mg/dL (0.7-1.3)
[2020-11-08] MEDS ORDERED: MAGNESIUM SULFATE PMX 2GM/50ML 50 ML IV ONE (06:30)
[2020-11-08] MEDS ORDERED: POTASSIUM PHOSPHATE 44 MEQ in SODIUM CHLORIDE 0.9% 500 ML IV ONE (06:30)
[2020-11-08 08:07] VITALS: BP 156/89
[2020-11-08] MEDS: SODIUM CHLORIDE FLUSH 10ML SYR IVF SCH (08:55)
[2020-11-08] MEDS: SENNA/DOCUSATE TABLET PO SCH (08:55)
== END 2020-11-08 11:02 | disposition home or self-care (01) | DRG 638 ==
LOC: ED 06:18 → EDIP 09:33 → CCU 10:34 → CSU 22:35 → 5SO 11-07 10:30 → DCLOUNGE 11-08 10:54
PROVIDERS: ADMIT Internal Medicine; ATTEND Internal Medicine
DX: E11.649 Type 2 diabetes mellitus with hypoglycemia without coma (principal); D68.69 Other thrombophilia; E87.1 Hypo-osmolality and hyponatremia; F10.239 Alcohol dependence with withdrawal, unspecified; K70.10 Alcoholic hepatitis without ascites; N17.0 Acute kidney failure with tubular necrosis; R56.9 Unspecified convulsions; D50.9 Iron deficiency anemia, unspecified; D69.6 Thrombocytopenia, unspecified; D72.828 Other elevated white blood cell count; E86.0 Dehydration; Z20.822 Contact with and (suspected) exposure to COVID-19; E87.6 Hypokalemia; E87.8 Other disorders of electrolyte and fluid balance, not elsewhere classified; F17.200 Nicotine dependence, unspecified, uncomplicated; F41.1 Generalized anxiety disorder; I10 Essential (primary) hypertension; I34.0 Nonrheumatic mitral (valve) insufficiency; I48.0 Paroxysmal atrial fibrillation; J45.909 Unspecified asthma, uncomplicated; K21.9 Gastro-esophageal reflux disease without esophagitis; Z82.49 Family history of ischemic heart disease and other diseases of the circulatory system; Z91.030 Bee allergy status; Z91.041 Radiographic dye allergy status
CPT/HCPCS: 96374; 99291; J7042; 70450; 71045; 76770; 80048; 80053; 80074; 80299; 80307; 80320; 80329; 81001; 82550; 82728; 82962; 83036; 83540; 83550; 83735; 84100; 84132; 84443; 85025; 87081; 93005; G0378; J1644; J2405; J3411; J3475; J3480; G0480; J7030; J7040; U0003

== ENCOUNTER 2021-01-30 14:18 | Inpatient (IN) | payer MEDICAID ==
[~2021-01-30] VITALS: Ht 172.7 cm; Wt 57.7 kg
--- NOTE | 2021-01-30 14:33 | NUR ---
ASSUMED CARE OF PT. PT BIB [facility]-C/O OF SOME CP WHICH IN PAST EXPERIENCE FOR PT HAS BEEN R/T BLOOD SUGAR. BLOOD SUGAR WAS 360, [facility] PLACED 20 G RFA, ADMINSTERED 500 ML BOLOUS AND PT REPORTED FEELING BETTER, CP GONE. PT ALSO HAS HX OF ANXIETY. PT PLACED IN GOWN, EKG COMPLETED, MONITORS IN PLACE INCULDING EKG. 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 VSSARISTEO. CALL LIGHT W/ IN REACH.
[2021-01-30 15:35] LABS: BASOPHILS % (AUTO) 1 % (0-1); EOSINOPHILS % (AUTO) 3 % (1-7); LYMPHOCYTES % (AUTO) 49 % (22-44); MEAN CORPUSCULAR HEMOGLOBIN 26.6 pg (27.5-34.5); MEAN PLATELET VOLUME 8.8 fL (7.4-10.4); MONOCYTES % (AUTO) 9 % (2-9); NEUTROPHILS % (AUTO) 39 % (42-75); PLATELET COUNT 105 x10^3/uL (130-400); RED BLOOD COUNT 4.68 x10^6/uL (4.38-5.82); RED CELL DISTRIBUTION WIDTH 14.2 % (9.4-14.8)
--- NOTE | 2021-01-30 15:38 | NUR ---
PT RESTING ON GURNEY, EYES CLOSED. WATER PROVIDED REQUESTED AND OK'D BY ARISTEO SANTIAGO. CALL LIGHT W/IN REACH.
[2021-01-30 15:45] LABS: ALANINE AMINOTRANSFERASE 39 U/L (12-78); ANION GAP 9 mmol/L (5-15); CALCIUM 7.5 mg/dL (8.5-10.1); CHLORIDE 104 mmol/L (98-107)
[2021-01-30 15:50] LABS: ALKALINE PHOSPHATASE 87 U/L (45-117); BILIRUBIN,TOTAL 0.4 mg/dL (0.2-1.0); CREATININE 0.71 mg/dL (0.7-1.3)
--- NOTE | 2021-01-30 16:36 | NUR ---
PT SLEEPING ON GURNEY, VSS, NADN. CALL LIGHT W/IN REACH.
--- NOTE | 2021-01-30 17:25 | NUR ---
PT RESTING IN GURNEY, NO NEEDS. VSS, NADN. CALL LIGHT W/IN REACH.
--- NOTE | 2021-01-30 17:45 | NUR ---
PT REQUESTED JELLO OR SOMETHING TO EAT, CALLED DIETARY OFFICE TO REQUEST SUGAR FREE JELLO.
--- NOTE | 2021-01-30 18:51 | NUR ---
SBAR REPORT GIVEN TO KALEY
[2021-01-30 19:14] LABS: TROPONIN I 0.023 ng/mL (0.000-0.045)
--- NOTE | 2021-01-30 19:44 | NUR ---
PT LAYING IN BED, A/OX4, PTS BLOOD PRESSURE IS ELEVATED BUT PT IS KNOWN HYPERTENSIVE THAT TAKES HIS MEDICATIONS ROUTINELY, PT WANTING TO GO HOME, D/C PENDING LABS, NAD AT THIS TIME
[2021-01-30] MEDS ORDERED: ENALAPRILAT 1.25 MG/ML, 2ML IV ONE (20:30)
[2021-01-30] MEDS ORDERED: ENALAPRILAT 1.25 MG/ML, 1ML ONE (20:34)
[2021-01-30 21:30] VITALS: BP 170/104
[2021-01-30] MEDS ORDERED: LORazepam 0.5MG TABLET PO PRN (21:30)
[2021-01-30] MEDS ORDERED: PROMETHAZINE 12.5 MG SUPP PR PRN (21:30)
[2021-01-30] MEDS ORDERED: ALUMINUM/MAG/SIMETHICONE 30 ML UDC PO PRN (21:30)
[2021-01-30] MEDS ORDERED: QUETIAPINE 100MG TABLET PO SCH (21:30)
[2021-01-30] MEDS ORDERED: MAGNESIUM SULFATE PMX 2GM/50ML 50 ML IV ONE (21:30)
[2021-01-30] MEDS ORDERED: LORazepam 1MG TABLET PO PRN ×4 (21:30)
[2021-01-30] MEDS ORDERED: FOLIC ACID 1 MG TABLET PO ONE (21:47)
[2021-01-30] MEDS ORDERED: THIAMINE 200 MG in DEXTROSE 5% 50 ML IVPB ONE (22:00)
[2021-01-30] MEDS: METOPROLOL TARTRATE 25 MG TAB PO SCH (22:11)
[2021-01-30] MEDS: BUSPIRONE 5 MG TABLET PO SCH (22:11)
[2021-01-30] MEDS: CITALOPRAM 20 MG TABLET PO SCH (22:11)
[2021-01-30] MEDS ORDERED: ENALAPRILAT 1.25 MG/ML, 1ML IV PRN (23:00)
[2021-01-30] MEDS: INSULIN LISPRO 100 UNITS/ML, PEN SQ-INSULIN SCH (23:00)
[2021-01-30] MEDS: LEVETIRACETAM 500 MG TABLET PO SCH (23:08)
[2021-01-30] MEDS: VENLAFAXINE 75MG TABLET PO SCH (23:08)
[2021-01-30] MEDS: BUPRENORPHINE/NALOXONE 8-2MG SL SCH (23:08)
[2021-01-30 23:47] VITALS: BP 113/76
[2021-01-31 00:48] LABS: BASOPHILS % (AUTO) 2 % (0-1); EOSINOPHILS % (AUTO) 4 % (1-7); LYMPHOCYTES % (AUTO) 48 % (22-44); MEAN CORPUSCULAR HEMOGLOBIN 26.5 pg (27.5-34.5); MONOCYTES % (AUTO) 5 % (2-9); NEUTROPHILS % (AUTO) 42 % (42-75); PLATELET COUNT 107 x10^3/uL (130-400); RED BLOOD COUNT 4.89 x10^6/uL (4.38-5.82)
[2021-01-31 01:00] LABS: ANION GAP 7 mmol/L (5-15); CALCIUM 7.7 mg/dL (8.5-10.1); CHLORIDE 102 mmol/L (98-107); CHOLESTEROL, TOTAL 88 mg/dL (140-239); CREATININE 0.66 mg/dL (0.7-1.3); TRIGLYCERIDES 87 mg/dL (50-200); VLDL CHOLESTEROL 17 mg/dL (0-25)
[2021-01-31 01:10] LABS: CHOL/HDL RATIO 2.2; HDL CHOL % 45 % (26-37); HDL CHOLESTEROL (DIRECT) 40 mg/dL (40-60); LDL CHOLESTEROL,CALCULATED 31 mg/dL (54-169); LDL/HDL RATIO 0.8 (0.5-3.0); TROPONIN I 0.037 ng/mL (0.000-0.045)
[2021-01-31 02:00] VITALS: BP_SYST 112; BP_SYST 96; BP_DIAS 64; BP_DIAS 79
[2021-01-31] MEDS ORDERED: OMEPRAZOLE 20 MG CAPSULE.DR PO SCH (06:00)
[2021-01-31 06:28] VITALS: BP 143/89
[2021-01-31] MEDS: INSULIN LISPRO 100 UNITS/ML, PEN SQ-INSULIN SCH ×3 (07:00→16:00)
[2021-01-31 07:15] LABS: TROPONIN I 0.037 ng/mL (0.000-0.045)
[2021-01-31] MEDS: VENLAFAXINE 75MG TABLET PO SCH (07:52)
[2021-01-31] MEDS: METOPROLOL TARTRATE 25 MG TAB PO SCH (07:52)
[2021-01-31] MEDS: LEVETIRACETAM 500 MG TABLET PO SCH (07:52)
[2021-01-31] MEDS: CITALOPRAM 20 MG TABLET PO SCH (07:52)
[2021-01-31] MEDS: BUSPIRONE 5 MG TABLET PO SCH (07:52)
[2021-01-31 07:55] VITALS: BP 149/85
[2021-01-31 07:57] VITALS: BP 135/90
[2021-01-31] MEDS ORDERED: ASPIRIN 81 MG TABLET EC PO SCH (08:00)
[2021-01-31] MEDS ORDERED: REGADENOSON 0.4 MG/5 ML SYRINGE ONE (09:44)
[2021-01-31] MEDS: BUPRENORPHINE/NALOXONE 8-2MG SL SCH (11:47)
[2021-01-31 12:14] VITALS: BP 150/83
[2021-01-31] MEDS ORDERED: METO25TA35 PO (17:25)
[2021-01-31] MEDS ORDERED: INSU100I34 SQ (17:25)
[2021-01-31] MEDS ORDERED: AMLO-211 PO (17:25)
== END 2021-01-31 18:30 | disposition home or self-care (01) | DRG 313 ==
LOC: ED 14:24 → EDIP 20:15 → 5SO 21:41
PROVIDERS: ADMIT Internal Medicine; ATTEND Family Medicine
DX: R07.89 Other chest pain (principal); D64.9 Anemia, unspecified; D69.6 Thrombocytopenia, unspecified; E11.9 Type 2 diabetes mellitus without complications; F10.10 Alcohol abuse, uncomplicated; F17.200 Nicotine dependence, unspecified, uncomplicated; F32.9 Major depressive disorder, single episode, unspecified; F41.1 Generalized anxiety disorder; G40.909 Epilepsy, unspecified, not intractable, without status epilepticus; I11.9 Hypertensive heart disease without heart failure; I48.0 Paroxysmal atrial fibrillation; J44.9 Chronic obstructive pulmonary disease, unspecified; K21.9 Gastro-esophageal reflux disease without esophagitis; Z91.041 Radiographic dye allergy status
CPT/HCPCS: 36415; J0574; 71045; 78452; 80048; 80053; 80061; 80320; 82962; 83036; 83735; 83880; 84100; 84443; 84484; 85025; 93005; 93017; 93306; 93356; G0378; J2785; J3411; A9502; G0480; J1815; J3475; Q0177

== ENCOUNTER 2021-04-27 18:00 | Emergency (ER) | payer MEDICAID ==
[~2021-04-27] VITALS: Ht 157.5 cm; Wt 51.0 kg
[~2021-04-27 18:00] MED LIST changes: +AMLO-211 PO; -QUET300T PO; +QUET300T2 PO
[2021-04-27 18:07] VITALS: BP 145/98
--- NOTE | 2021-04-27 18:14 | NUR ---
KULDIP. PER EMS PT CALLED SON AND TOLD SON "IM DYING". SON CALLED 911 AND EMS ARRIVED TO FIND PT LYING FACE DOWN ON GROUND. PT A&0X3 AND IS NOT VERY CLEAR WITH HIS INTENTIONS OF COMING TO HOSPITAL. WHEN ASKED WHY HE IS HERE PT STATES "I DONT KNOW SO YOU NEED TO TELL ME". WHEN TAKING VITALS PT STATES "CAN I TOUCH YOU? YOU TOUCHED ME SO CAN I TOUCH YOU". PT WILL ALSO SITTING AT EDGE OF BED AND WANTING TO LEAVE. PT UNABLE TO GIVE THIS RN HIS ADDRESS OR SONS PHONE NUMBER. PTS WITH HX OF SZ AND DM.
[2021-04-27] MEDS ORDERED: ONDANSETRON 2MG/ML, 2ML ONE (18:28)
[2021-04-27] MEDS ORDERED: LORazepam 2 MG/ML, 1ML ONE (18:29)
[2021-04-27] MEDS ORDERED: ONDANSETRON ODT 4 MG PO ONE (18:30)
[2021-04-27] MEDS ORDERED: LORazepam 1MG TABLET PO ONE (18:30)
--- NOTE | 2021-04-27 18:35 | NUR ---
PT UP AND OUT OF BED, THROWING UP IN SINK. DR NOEL AWARE, PLACING ORDERS.
--- NOTE | 2021-04-27 18:53 | NUR ---
PT OUT OF BED AND SITTING ON GROUND OUTSIDE OF ROOM. WHEN ESCORTING PATIENT BACK INTO ROOM PATIENT GRABBING THIS RNS BREASTS. JAVIER RN WITNESSED EVENT AN HELPING MOVE PT. PT TOLD HIS GESTURES ARE VERY INAPPROPRIATE MULTIPLE TIMES. MD AWARE AND PT UP FOR DC. SECURITY CALLED TO ESCORTE PT OUT.
[2021-04-27 18:58] LABS: MEAN CORPUSCULAR HGB CONC 33.8 g/dL (33.2-36.2); MEAN PLATELET VOLUME 8.7 fL (7.4-10.4); PLATELET COUNT 160 x10^3/uL (130-400); RED BLOOD COUNT 5.68 x10^6/uL (4.38-5.82); RED CELL DISTRIBUTION WIDTH 13.7 % (9.4-14.8)
[2021-04-27] MEDS ORDERED: LORazepam 2 MG/ML, 1ML IVPush ONE (19:00)
[2021-04-27] MEDS ORDERED: ONDANSETRON 2MG/ML, 2ML IVPush ONE (19:00)
--- NOTE | 2021-04-27 19:00 | NUR ---
READING TEACHER WITNESSED PATIENT GROPE COLLEGUES BREAST PURPOSEFULLY. RE-DIRECTED PATIENT BUT STILL ATTEMPTING TO SEXUALLY ADVANCE ON COLLEGUE. COLLEGUE CHOOSE TO CALL SECURITY. READING TEACHER AGREEABLE
[2021-04-27 19:01] LABS: ALANINE AMINOTRANSFERASE 76 U/L (12-78); ALBUMIN 3.5 g/dL (3.4-5.0); ANION GAP 7 mmol/L (5-15); CALCIUM 7.9 mg/dL (8.5-10.1); CHLORIDE 109 mmol/L (98-107)
[2021-04-27 19:06] LABS: ALKALINE PHOSPHATASE 104 U/L (45-117); BILIRUBIN,TOTAL 0.3 mg/dL (0.2-1.0); TOTAL PROTEIN 7.7 g/dL (6.4-8.2)
[2021-04-27 19:26] LABS: EOS#(MANUAL) 0.12 x10^3/uL (0.0-0.4); EOS% (MANUAL) 2 % (1-7); LYMPH#(MANUAL) 3.11 x10^3/uL (1-3.4); LYMPHS% (MANUAL) 51 % (22-44); MONOS#(MANUAL) 0.24 x10^3/uL (0.3-2.7); MONOS% (MANUAL) 4 % (2-9); SEG#(MANUAL) 2.62 x10^3/uL (1.8-6.8); SEGS% (MANUAL) 43 % (42-75)
[2021-04-27 19:28] LABS: <PLATELET ESTIMATE> ADEQUATE; <PLT MORPHOLOGY> NORMAL PLT MORPH; <WBC MORPHOLOGY> NORMAL
== END 2021-04-27 19:07 | disposition home or self-care (01) ==
LOC: ED 18:05
DX: G40.909 Epilepsy, unspecified, not intractable, without status epilepticus (principal); F10.139 Alcohol abuse with withdrawal, unspecified; R55 Syncope and collapse; Y90.0 Blood alcohol level of less than 20 mg/100 ml; I10 Essential (primary) hypertension; E11.9 Type 2 diabetes mellitus without complications; J44.9 Chronic obstructive pulmonary disease, unspecified
CPT/HCPCS: 36415; 80053; 80320; 85025; 96374; 96375; 99284; J2060; J2405; G0480

== ENCOUNTER 2021-04-30 09:40 | Emergency (ER) | payer MEDICAID ==
[~2021-04-30] VITALS: Ht 172.7 cm; Wt 56.0 kg
--- NOTE | 2021-04-30 10:10 | NUR ---
PT ON INGA, PLACED ON ALL MONITORS, SEIZURE PADS IN PLACE AND BED IN LOW POSITION.
[2021-04-30 10:16] LABS: BASOPHILS % (AUTO) 0 % (0-1); EOSINOPHILS % (AUTO) 0 % (1-7); LYMPHOCYTES % (AUTO) 19 % (22-44); MEAN CORPUSCULAR HEMOGLOBIN 26.7 pg (27.5-34.5); MEAN CORPUSCULAR HGB CONC 33.3 g/dL (33.2-36.2); MONOCYTES % (AUTO) 5 % (2-9); NEUTROPHILS % (AUTO) 75 % (42-75); PLATELET COUNT 74 x10^3/uL (130-400); RED CELL DISTRIBUTION WIDTH 13.2 % (9.4-14.8)
[2021-04-30 10:27] LABS: ALBUMIN 3.4 g/dL (3.4-5.0); ANION GAP 11 mmol/L (5-15); CALCIUM 8.1 mg/dL (8.5-10.1); CHLORIDE 104 mmol/L (98-107); CREATININE 0.92 mg/dL (0.7-1.3)
[2021-04-30] MEDS ORDERED: THIAMINE 100MG TABLET PO ONE (10:30)
[2021-04-30] MEDS ORDERED: THIAMINE 100MG TABLET ONE (10:42)
[2021-04-30 11:33] VITALS: BP 174/127
--- NOTE | 2021-04-30 11:33 | NUR ---
TAXI VOUCHER PROVIDED FOR SAFE DISCHARGE.
== END 2021-04-30 11:47 | disposition home or self-care (01) ==
LOC: ED 09:44
DX: G40.309 Generalized idiopathic epilepsy and epileptic syndromes, not intractable, without status epilepticus (principal); E11.65 Type 2 diabetes mellitus with hyperglycemia; F10.10 Alcohol abuse, uncomplicated; J44.9 Chronic obstructive pulmonary disease, unspecified; I10 Essential (primary) hypertension; Y90.0 Blood alcohol level of less than 20 mg/100 ml
CPT/HCPCS: 36415; 80048; 82040; 85025; 93005; 99284